=== PATIENT | male | born 1955 | race Caucasian/White ===

== ENCOUNTER → 2016-10-31 | Outpatient (CLI) | payer OTHER ==
[~2016-10-31] MED LIST: ACYC200CA PO; AMLO5TAB2 PO; ASPI81TA21 PO; HYDR25TA PO; LISI-538 PO; TRAM50TA2 PO
--- NOTE | 2016-11-04 11:33 | REP ---
MRI THE RIGHT HIP WITHOUT CONTRAST: HISTORY: Right hip pain. Comparison radiographs are from October 16, 2016. TECHNIQUE: Coronal axial and sagittal imaging planes utilized. T1 and T2-weighted scans were obtained in the usual fashion with and without fat saturation. MRI FINDINGS: There are unfortunately multiple low T1 heterogeneously increased T2 signal intensity rounded lesions scattered throughout the visualized bony skeleton consistent with skeletal metastatic disease. The largest lesion occupies essentially all of the L5 vertebral body and this is somewhat flattened. There is a 3.8 cm lesion in the right ischium and a similar size lesion in the right posterior acetabulum. There is an anterior lesion at the proximal end of the superior pubic ramus on the right. There is an inferior pubic ramus lesion on the right. There are small mottled proximal femoral lesions, the largest of which measures 1.8 cm. This is also on the right. There are bilateral lesions in the posterior iliac bones adjacent to the SI joints. The lesion on the left at this location measures 5.3 cm in greatest diameter. It is incompletely seen. There is no evidence of joint effusion. No other significant finding. IMPRESSION: Findings compatible with skeletal metastatic disease with two lesions in the periacetabular region on the right as well as bilateral iliac bone lesions adjacent the SI joints. There are right inferior pubic and superior pubic ramus lesions and there are several small lesions in the right proximal femur and to a lesser extent left proximal femur. No pelvic adenopathy seen. The visualized portions of the prostate are unremarkable. Consider radionuclide bone scan. There is partial collapse of the L5 vertebral body which is also involved. Consider MRI lumbar spine. Signed by Michael Rosales MD 11/04/2016 05:01 P
== END ==
LOC: M RAD 09:32
PROVIDERS: ATTEND Orthopaedic Surgery
DX: R93.7 Abnormal findings on diagnostic imaging of other parts of musculoskeletal system (principal)

== ENCOUNTER → 2016-11-05 | Outpatient (CLI) | payer OTHER ==
--- NOTE | 2016-11-05 14:16 | REP ---
Whole body radionuclide bone scan: History: Right hip pain. Comparison MRI study is from October 31, 2016. MRI exam showed evidence suggestive of metastatic disease. Technique: 21.5 mCi technetium 99m MDP is injected and standard whole body bone scan imaging was acquired. Scintigraphic findings: There are foci of increased uptake in several ribs including the left anterior 5th, 6th, and 7th ribs, the right 10th lateral rib, the left 11th rib end. There are small suspicious foci in the left anterior 9th and 10th ribs. There is some asymmetric increased uptake in the tip of the scapula on the right. Otherwise, there is normal distribution of skeletal tracer with uptake in bilateral kidneys and in the urinary bladder. The known hip, iliac crest and L5 lumbar spine lesions do not show observable increased uptake. Impression: Suspicious foci of increased uptake in bilateral ribs consistent with metastatic disease. Curiously, the known pelvic lesions and the L5 lesion do not show observable increased uptake. Signed by Michael Rosales MD 11/05/2016 05:15 P
== END ==
LOC: M RAD 10:43
PROVIDERS: ATTEND Orthopaedic Surgery
DX: M25.551 Pain in right hip (principal)

== ENCOUNTER → 2016-11-20 | Outpatient (REF) | payer OTHER ==
[2016-11-20 14:22] LABS: IMMUNOGLOBULIN G 2530 MG/DL (681-1648); TOTAL PROTEIN 8.3 GM/DL (6.4-8.2)
[2016-11-20 15:48] LABS: IMMUNOGLOBULIN A 18.9 MG/DL (70-400)
[2016-11-20 15:49] LABS: IMMUNOGLOBULIN M 6.02 MG/DL (40-230)
[2016-11-22 00:07] LABS: BETA 2 MICROGLOBULIN 4.1 mg/L (0.6-2.4); FREE KAPPA LIGHT CHAINS SERUM 11.7 mg/L (3.3-19.4); FREE LAMBDA LIGHT CHAINS SERUM 4303.2 mg/L (5.7-26.3)
[2016-11-23 12:54] LABS: ALBUMIN 3.82 GM/DL (3.29-5.55); GAMMA GLOBULIN % 27.3 % (11.1-18.8)
== END ==
LOC: M LAB REF 13:27
PROVIDERS: ATTEND Internal Medicine Medical Oncology
DX: D47.2 Monoclonal gammopathy (principal); C79.51 Secondary malignant neoplasm of bone

== ENCOUNTER → 2016-11-23 | Outpatient (REF) | payer OTHER | LOC: M LAB REF 15:33 | PROVIDERS: ATTEND Internal Medicine Medical Oncology | DX: D47.2 Monoclonal gammopathy (principal); C90.00 Multiple myeloma not having achieved remission; C79.51 Secondary malignant neoplasm of bone ==

== ENCOUNTER → 2016-11-25 | Outpatient (CLI) | payer OTHER ==
--- NOTE | 2016-11-25 15:46 | REP ---
Whole body PET CT scan for evaluation of multiple myeloma: Whole body PET CT scanning is performed from skull base to the upper thighs. Neck and supraclavicular areas: There is a small hypermetabolic focus in the left lateral mass of the C1 vertebra with the standard uptake value measuring 6.5. There is a hypermetabolic uptake in normal size cervical nodes at the base of the neck lateral to the thyroid one on the right with the standard uptake value of 3.4 and the other on the left with the standard uptake value of 2.5. There are no other hypermetabolic foci in the neck or supraclavicular areas. Chest: There are no hypermetabolic foci. Abdomen, pelvis and upper thighs: The spleen measures 13 cm craniocaudad and is moderately enlarged. There is diffuse uptake throughout the splenic parenchyma with the standard uptake value maximally measuring 10.6. There is uptake in several normal-size nodes at the mid and inferior abdominal aorta with a maximal standard uptake value measuring 8.6. There is uptake in a left normal size with femoral node with a standard uptake value of 5.8. There is uptake in a normal-sized left inguinal node, the standard uptake value of 5.6. Impression: There is a small focus of skeletal uptake in the left lateral mass of the C1 vertebra. There is uptake in cervical nodes in the neck bilaterally lateral to the thyroid. There is uptake in normal size nodes in the abdomen, pelvis and upper thigh as described. The study is performed with 10 mCi of F 18 FDG. Signed by Rodger Langford MD 11/25/2016 03:36 P
== END ==
LOC: M PLARAD 09:31
PROVIDERS: ATTEND Internal Medicine Medical Oncology
DX: C90.00 Multiple myeloma not having achieved remission (principal); C79.51 Secondary malignant neoplasm of bone
CPT/HCPCS: 78815; A9552

== ENCOUNTER 2016-11-28 11:26 | Inpatient (IN) | payer OTHER ==
[~2016-11-28] VITALS: Ht 167.6 cm; Wt 90.1 kg
[2016-11-28] MEDS ORDERED: TRAM50TA2 PO (11:41)
[2016-11-28] MEDS ORDERED: LISI-538 PO (11:41)
[2016-11-28] MEDS ORDERED: ASPI81TA21 PO (11:41)
[2016-11-28] MEDS ORDERED: ONDANSETRON 4 MG ORAL DISINTEGRATING TAB (S0181) PO ONE (12:00)
[2016-11-28] MEDS ORDERED: NS 1,000 ML IV ONE ×2 (12:15→14:45)
[2016-11-28] MEDS ORDERED: KETOROLAC 30 MG/ML VIAL (J1885) IV ONE (12:15)
--- NOTE | 2016-11-28 12:30 | REP ---
REASON: Abdominal pain. PRIORS: None. FINDINGS: KUB shows the intestinal gas pattern to be nonspecific. The organ silhouettes insofar as delineated are unremarkable. There is no evidence of free intraperitoneal air. The bones are demineralized. There are multiple lumbar vertebral body compression fractures. Conditions such as multiple myeloma can cause the aforementioned osseous findings. This needs to be correlated clinically. Review of history from prior imaging exams reveals that the patient, in fact, does have a history of multiple myeloma. IMPRESSION: Nonspecific. Signed by Soy Trotter DO 11/28/2016 04:41 P
[2016-11-28 12:45] LABS: BASO % 0.2 % (0.0-1.0); EOS # 0.1 K/mm3 (0.0-0.50); LARGE UNSTAINED CELL # 0.1 K/mm3 (0.0-0.4); LARGE UNSTAINED CELL % 1.5 % (0.0-4.0); LYMPH # 0.9 K/mm3 (1.5-4.5); LYMPH % 10.6 % (24.0-44.0); MEAN CORPUSCULAR HEMOGLOBIN 31.9 pg (27.0-33.0); MEAN CORPUSCULAR VOLUME 91.3 fl (80.0-96.0); MONO # 0.5 K/mm3 (0.0-0.8); MONO % 7.1 % (0.0-5.0); NEUTROPHILS % 79.6 % (36.0-66.0); PLATELET COUNT, AUTOMATED 250 k/mm3 (150-450); RED CELL DISTRIBUTION WIDTH 14.1 % (11.5-14.5); WHITE BLOOD COUNT 7.5 K/mm3 (4.0-10.0)
[2016-11-28 13:05] LABS: ALBUMIN 3.4 GM/DL (3.2-5.2); ALBUMIN/GLOBULIN RATIO 0.61 (1.00-1.93); BILIRUBIN,DIRECT 0.1 MG/DL (0.0-0.2); BILIRUBIN,TOTAL 0.6 MG/DL (0.2-1.0); CREATININE FOR GFR 3.45 MG/DL (0.70-1.30); GLOMERULAR FILTRATION RATE 19.5 (>56); POTASSIUM SERUM 4.3 MEQ/L (3.5-5.1)
[2016-11-28 13:23] LABS: CALCIUM LEVEL 14.6 MG/DL (8.5-10.1)
[2016-11-28] MEDS ORDERED: amLODIPine 5 MG TAB PO ONE ×2 (15:15→19:15)
[2016-11-28] MEDS ORDERED: ACETAMINOPHEN TAB 650MG DOSE (2X325MG) PO PRN (15:15)
--- NOTE | 2016-11-28 15:44 | HPEPDOC ---
Medical History and Physical Date of Admission Nov 28, 2016 at 15:07 History and Physical PRIMARY CARE PROVIDER: Dr. Rj Vazquez ATTENDING: Shree Sawyer MD CHIEF COMPLAINT: Nausea/vomiting HISTORY OF PRESENT ILLNESS: This is a 60-year-old male past medical history of hypertension, nephrolithiasis , has recently had an extensive workup for possible multiple myeloma with Dr. Campbell and presents complaining of nausea/nonbilious nonbloody vomiting, as well as constipation. Patient is had multiple imaging over the past month including a MRI of the lumbar spine noting a partial collapse of L5, bone scan suspicious for focal uptake in bilateral ribs questionable consistent with metastatic disease, as well as a recent PET scan with small skeletal uptake of C1 vertebrae. The patient has had blood work and that his very suspicious for multiple myeloma as well. The patient has not followed up with a manager generation yet. On presentation, the patient was noted to have acute kidney injury with significant hypercalcemia. He does note increased urine frequency. No dysuria. Does have a dry mouth. No confusion or changes in mentation. No focal weakness or deficits. PAST MEDICAL HISTORY: As per HPI PAST SURGICAL HISTORY: 2 hernia repairs, vasectomy SOCIAL HISTORY: Denies tobacco abuse. Occasional alcohol use. No illicit drug use. 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 FAMILY HISTORY: Noncontributory ALLERGIES: Please see below. REVIEW OF SYSTEMS: HEENT: Denies sore throat/headache CARDIOVASCULAR: Denies chest pain/palpitations RESPIRATORY: Denies shortness of breath/cough GASTROINTESTINAL: + nausea/vomiting, constipation. GENITOURINARY: Denies dysuria/urinary urgency. MUSCULOSKELETAL: Denies myalgias/arthralgias NEUROLOGICAL: Denies any focal weakness HOME MEDICATIONS: Please see below. PHYSICAL EXAMINATION: Vitals: (see below) General: No acute distress, laying comfortably in bed. HEENT: Dry mucous membranes. Neck: No JVD or lymphadenopathy Cardiac: RRR, No murmurs Pulm: Clear to auscultation b/l. No wheezing, rhonchi Abd: Minimal discomfort in the lower quadrants. ND + BS Ext: No edema or cyanosis Alert and oriented 3. Strength 5 out of 5 bilateral upper and lower extremity. LABORATORY DATA: See below. IMAGING: CT abdomen/pelvis, as well as renal ultrasound pending. MICROBIOLOGY: Please see below. ASSESSMENT/PLAN: 1. Hypercalcemia- likely send her secondary to multiple myeloma versus underlying malignancy. The patient does not have any neurologic changes at this time. Status post to use liters bolus normal saline followed by maintenance fluids. Repeat labs this afternoon.? Need for bisphosphonates versus calcitonin. Does appear dry on presentation, and we'll hold off on Lasix. Nephrology consulted. 2. Acute kidney injury- likely secondary to hypercalcemia, dehydration, and KEVIN inhibitor. Renal ultrasound. Urine studies. Hold KEVIN inhibitor at this point. Nephrology on consult. Continue IV fluids. 3. ? Malignancy being worked up by Dr. Campbell. Will need outpatient follow-up. 4. History of hypertension- uncontrolled. Started on amlodipine. 5. ? Abdominal discomfort in the lower quadrants. Questionable related to constipation. 6. Constipation- start on bowel regimen. 7. Prior history of nephrolithiasis- ? Related to #1. DVT prophylaxis- heparin subcutaneous Prognosis guarded. Patient was followed by Dr. Lisa Francisco starting 11/29/16 at 7 AM. Vital Signs Vital Signs Date Time Temp Pulse Resp B/P (MAP) Pulse Ox O2 Delivery O2 Flow Rate FiO2 11/28/16 11:59 11/28/16 11:27 96.9 77 18 99 Room Air Laboratory Data Labs 24H Laboratory Tests 2 11/28/16 12:33: White Blood Count 7.5, Red Blood Count 4.16L, Hemoglobin 13.3L, Hematocrit 38.0L , Mean Corpuscular Volume 91.3, Mean Corpuscular Hemoglobin 31.9, Mean Corpuscular Hemoglobin Concent 35.0, Red Cell Distribution Width 14.1, Platelet Count 250, Neutrophils (%) (Auto) 79.6H, Lymphocytes (%) (Auto) 10.6L, Monocytes (%) (Auto) 7.1H, Eosinophils (%) (Auto) 1.0, Basophils (%) (Auto) 0.2 , Neutrophils # (Auto) 6.0, Lymphocytes # (Auto) 0.9L, Monocytes # (Auto) 0.5, Eosinophils # (Auto) 0.1, Basophils # (Auto) 0.0, Large Unclassified Cells % 1.5 , Large Unclassified Cells # 0.1, Anion Gap 10, Glomerular Filtration Rate 19.5L , Calcium Level 14.6*H, Aspartate Amino Transf (AST/SGOT) 28, Alanine Aminotransferase (ALT/SGPT) 27, Alkaline Phosphatase 174H, Total Bilirubin 0.6, Direct Bilirubin 0.1, Total Protein 9.0H, Albumin 3.4, Albumin/Globulin Ratio 0.61L, Lipase 118 CBC/BMP Laboratory Tests 11/28/16 12:33 Red Blood Count 4.16 L, Mean Corpuscular Volume 91.3, Mean Corpuscular Hemoglobin 31.9, Mean Corpuscular Hemoglobin Concent 35.0, Red Cell Distribution Width 14.1, Neutrophils (%) (Auto) 79.6 H, Lymphocytes (%) (Auto) 10.6 L, Monocytes (%) (Auto) 7.1 H, Eosinophils (%) (Auto) 1.0, Basophils (%) ( Auto) 0.2, Neutrophils # (Auto) 6.0, Lymphocytes # (Auto) 0.9 L, Monocytes # ( Auto) 0.5, Eosinophils # (Auto) 0.1, Basophils # (Auto) 0.0 Home Medications Scheduled Aspirin (Aspir-Low) 81 Mg Tab, 81 MG PO DAILY Lisinopril (Lisinopril) 20 Mg Tab, 20 MG PO DAILY Scheduled PRN Tramadol HCl (Tramadol HCl) 50 Mg Tab, 50 MG PO Q6H PRN for PAIN Allergies Coded Allergies: No Known Drug Allergy (Verified Allergy, Unknown, 11/28/16) SHREE SAWYER MD Nov 28, 2016 15:44
[2016-11-28] MEDS ORDERED: traMADol 50 MG TAB PO PRN (15:45)
[2016-11-28] MEDS ORDERED: GASTROGRAFIN SOLUTION 30ML (Q9963) As Ordered ONE (15:49)
[2016-11-28] MEDS ORDERED: GASTROGRAFIN SOLUTION 30ML (Q9963) PO ONE (15:50)
[2016-11-28 16:00] VITALS: BP 174/80
[2016-11-28] MEDS ORDERED: NS 1,000 ML IV SCH (16:00)
[2016-11-28] MEDS ORDERED: GASTROGRAFIN SOLUTION 30ML PO ONE (16:20)
[2016-11-28] MEDS: PANTOPRAZOLE 40MG INJ (PROTONIX) (C9113) IV SCH (16:43)
[2016-11-28 18:00] VITALS: BP 180/86
--- NOTE | 2016-11-28 18:30 | REPUSA ---
CLINICAL HISTORY: DEHYDRATION, HYPERALCEMIA TECHNIQUE: Multiple axial, sagittal and coronal CT images were obtained through the abdomen and pelvi s without administration of oral or IV contrast material. COMMENTS: The liver is of uniform attenuation without mass or defect. There is no intra or extrahepatic biliary ductal dilatation. The spleen is mildly enlarged, 14 cm. The gallbladder is within normal limits. Th e pancreas is of normal contour and attenuation characteristics. There is no evidence of adrenal mass . The kidneys are normal in size, shape and configuration. No renal or ureteral calculi are identified. There is no hydroureter or hydronephrosis. Small fat-containing umbilical hernia is seen. There is no evidence for appendicitis. There is no bowel wall thickening. No evidence for small or la rge bowel obstruction. There is no evidence of abdominal ascites or lymphadenopathy. There is no evidence of intrinsic or extrinsic bladder mass. There is no pelvic ascites or lymphadeno hardik. Prostate gland is enlarged containing calcifications. Images of the lung bases show no evidence of pleural or parenchymal mass. There are no pleural effusi ons. There are lytic lesions noted throughout the visualized thoracolumbar spine as well as pelvic bones. L5 vertebral body appears to be completely engolfed by this lytic process. Multiple vertebral sharmin s are compressed. Multilevel degenerative changes are seen involving the thoracolumbar spine. Scattered calcifications are seen involving the aorta and major branches compatible with atherosclero sis. IMPRESSION: Diffuse lytic bony disease. L5 vertebral body appears to be completely engolfed by this lytic process . Metastases are suspected. Unclear primary malignancy. Additional findings as above. Further workup may include evaluation with PET/CT as well as MRI of the thoracolumbar spine
[2016-11-28 18:35] LABS: ALBUMIN 3.2 GM/DL (3.2-5.2); ALBUMIN/GLOBULIN RATIO 0.62 (1.00-1.93); BILIRUBIN,TOTAL 0.6 MG/DL (0.2-1.0); CREATININE FOR GFR 3.45 MG/DL (0.70-1.30); GLOMERULAR FILTRATION RATE 19.5 (>56); MAGNESIUM LEVEL 2.7 MG/DL (1.8-2.4); POTASSIUM SERUM 3.7 MEQ/L (3.5-5.1); TOTAL PROTEIN 8.4 GM/DL (6.4-8.2)
[2016-11-28 18:40] LABS: CALCIUM LEVEL 14.2 MG/DL (8.5-10.1)
[2016-11-28 20:00] VITALS: BP 167/78
[2016-11-28] MEDS: DOCUSATE SODIUM 100 MG CAP PO SCH (20:26)
[2016-11-28] MEDS ORDERED: ZOLEDRONIC ACID 4 MG in D5W 100 ML IV ONE (21:00)
--- NOTE | 2016-11-28 21:37 | ECGEPIP ---
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
[2016-11-28] MEDS: HEPARIN SOD (PORCINE) 5000 UNITS/ML VIAL SC SCH (21:48)
[2016-11-28] MEDS: KCL 20MEQ in NS 1000ML 1,000 ML IV SCH (21:49)
[2016-11-28] MEDS: CALCITONIN SALMON (MIACALCIN) 400INTERNATIONAL UNITS/2ML INJ (J0630) SQ SCH (21:49)
[2016-11-28 22:00] VITALS: BP 163/86
[2016-11-29] VITALS (8 sets, daily range): BP systolic 151–176; BP diastolic 70–87
--- NOTE | 2016-11-29 02:54 | ECGEPIP ---
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
[2016-11-29 05:34] LABS: MEAN CORPUSCULAR HEMOGLOBIN 31.7 pg (27.0-33.0); MEAN CORPUSCULAR HGB CONC 34.5 g/dl (32.0-36.5); MEAN CORPUSCULAR VOLUME 91.9 fl (80.0-96.0); WHITE BLOOD COUNT 6.3 K/mm3 (4.0-10.0)
[2016-11-29 05:49] LABS: CALCIUM LEVEL 13.2 MG/DL (8.5-10.1); CREATININE FOR GFR 3.63 MG/DL (0.70-1.30); GLOMERULAR FILTRATION RATE 18.4 (>56); MAGNESIUM LEVEL 2.4 MG/DL (1.8-2.4); POTASSIUM SERUM 3.9 MEQ/L (3.5-5.1)
[2016-11-29] MEDS: HEPARIN SOD (PORCINE) 5000 UNITS/ML VIAL SC SCH ×3 (06:40→22:12)
--- NOTE | 2016-11-29 07:24 | REP ---
REASON: Renal failure. PRIORS: None. The right kidney measures 13.5 x 7.2 x 6.4 cm and the left measures 12.4 x 6.8 x 5.6 cm. The renal cortex is echogenic bilaterally and there is less than optimal cortical medullary differentiation. There are no cystic or solid masses. There is no hydronephrosis. There is mild left caliceal dilatation. IMPRESSION: Echogenic kidneys and other findings as described above consistent with the patient's history or renal disease. Signed by Soy Trotter DO 11/29/2016 09:20 A
[2016-11-29] MEDS: ASPIRIN 81 MG ENTERIC TAB PO SCH (08:33)
[2016-11-29] MEDS: DOCUSATE SODIUM 100 MG CAP PO SCH ×2 (08:33→22:11)
[2016-11-29] MEDS: CALCITONIN SALMON (MIACALCIN) 400INTERNATIONAL UNITS/2ML INJ (J0630) SQ SCH ×2 (08:39→21:00)
[2016-11-29] MEDS: KCL 20MEQ in NS 1000ML 1,000 ML IV SCH ×2 (08:41→21:45)
[2016-11-29] MEDS ORDERED: amLODIPine 5 MG TAB PO SCH (09:00)
--- NOTE | 2016-11-29 11:55 | IPNPDOC ---
Subjective Date Seen The patient was seen on 11/29/16. Subjective Chief Complaint/HPI The patient is a 60-year-old male admitted with a reason for visit of Dehydration,Hyperalcemia. Events since last encounter feeling a little better no vomiting but still feels nauseous. no chest pain , or cough , no sob , still has some abdominal pain but better, no diarrhea. Objective Physical Examination General Exam: Positive: Alert, Cooperative, No Acute Distress Eye Exam: Positive: PERRLA, Conjunctiva & lids normal, EOMI, Negative: Sclera icteric ENT Exam: Positive: Atraumatic, Mucous membr. moist/pink, Pharynx Normal Neck Exam: Positive: Supple, Negative: JVD, thyromegaly Chest Exam: Positive: Clear to auscultation, Normal air movement Heart Exam: Positive: Rate Normal, Regular Rhythm, Normal S1, Normal S2, Negative: Murmurs, Rubs Telemetry: Positive: Bradycardia Abdomen Exam: Positive: Normal bowel sounds, Soft, Negative: Tenderness, Hepatospenomegaly Extremity Exam: Positive: Normal pulses, Negative: Clubbing, Cyanosis, Edema Skin Exam: Positive: Nl turgor and temperature, Negative: Rash, Breakdown Assessment /Plan Problems (1) Hypercalcemia Status: Acute Problem Text: due to MM with dehydration will continue with IVF , calcitonin , got Zometa on 11/28 If becomes fluid overloaded will need lasix. No Nsaids, ACEi and ARBs (2) Renal failure Status: Acute Problem Text: Acute renal failure due to hypercalcemia , dehydration and MM will continue with IVF lisinopril stopped. No Nsaids, ACEi , ARBs Or fleet enema. (3) Multiple myeloma Status: Chronic Problem Text: diagnosed in October symptoms going on for about 3 months Has IGG lambda MM follow with Dr Campbell. continue tramadol for Pain No Nsaids. (4) Hypertension Status: Chronic Problem Text: will start amlodipine. (5) Dehydration Status: Acute Problem Text: due to hypercalcemia. Plan/VTE VTE Prophylaxis Ordered?: Yes VS, I&O, 24H, Fishbone Vital Signs/I&O Vital Signs Date Time Temp Pulse Resp B/P (MAP) Pulse Ox O2 Delivery O2 Flow Rate FiO2 11/29/16 08:39 60 171/85 11/29/16 08:00 98.3 18 97 Room Air I&O- Last 24 Hours up to 6 AM 11/29/16 06:00 Intake Total 1790 ml Output Total 1220 ml Balance 570 ml Laboratory Data 24H LABS Laboratory Tests 2 11/28/16 12:33: White Blood Count 7.5, Red Blood Count 4.16L, Hemoglobin 13.3L, Hematocrit 38.0L , Mean Corpuscular Volume 91.3, Mean Corpuscular Hemoglobin 31.9, Mean Corpuscular Hemoglobin Concent 35.0, Red Cell Distribution Width 14.1, Platelet Count 250, Neutrophils (%) (Auto) 79.6H, Lymphocytes (%) (Auto) 10.6L, Monocytes (%) (Auto) 7.1H, Eosinophils (%) (Auto) 1.0, Basophils (%) (Auto) 0.2 , Neutrophils # (Auto) 6.0, Lymphocytes # (Auto) 0.9L, Monocytes # (Auto) 0.5, Eosinophils # (Auto) 0.1, Basophils # (Auto) 0.0, Large Unclassified Cells % 1.5 , Large Unclassified Cells # 0.1, Anion Gap 10, Glomerular Filtration Rate 19.5L , Calcium Level 14.6*H, Aspartate Amino Transf (AST/SGOT) 28, Alanine Aminotransferase (ALT/SGPT) 27, Alkaline Phosphatase 174H, Total Bilirubin 0.6, Direct Bilirubin 0.1, Total Protein 9.0H, Albumin 3.4, Albumin/Globulin Ratio 0.61L, Lipase 118 11/28/16 17:49: Anion Gap 8, Glomerular Filtration Rate 19.5L, Calcium Level 14.2*H, Aspartate Amino Transf (AST/SGOT) 24, Alanine Aminotransferase (ALT/SGPT) 24, Alkaline Phosphatase 158H, Total Bilirubin 0.6, Total Protein 8.4H, Albumin 3.2, Albumin/ Globulin Ratio 0.62L, Blood Urea Nitrogen 51H, Creatinine 3.45H, Sodium Level 137, Potassium Level 3.7, Chloride Level 99, Carbon Dioxide Level 30, Magnesium Level 2.7H 11/29/16 05:03: Anion Gap 11, Glomerular Filtration Rate 18.4L, Calcium Level 13.2H, Blood Urea Nitrogen 58H, Creatinine 3.63H, Sodium Level 141, Potassium Level 3.9, Chloride Level 105, Carbon Dioxide Level 25, Magnesium Level 2.4 CBC/BMP Laboratory Tests 11/28/16 12:33 Red Blood Count 4.16 L, Mean Corpuscular Volume 91.3, Mean Corpuscular Hemoglobin 31.9, Mean Corpuscular Hemoglobin Concent 35.0, Red Cell Distribution Width 14.1, Neutrophils (%) (Auto) 79.6 H, Lymphocytes (%) (Auto) 10.6 L, Monocytes (%) (Auto) 7.1 H, Eosinophils (%) (Auto) 1.0, Basophils (%) ( Auto) 0.2, Neutrophils # (Auto) 6.0, Lymphocytes # (Auto) 0.9 L, Monocytes # ( Auto) 0.5, Eosinophils # (Auto) 0.1, Basophils # (Auto) 0.0 11/28/16 17:49 Calcium Level 14.2 *H, Aspartate Amino Transf (AST/SGOT) 24, Alanine Aminotransferase (ALT/SGPT) 24, Alkaline Phosphatase 158 H, Total Bilirubin 0.6 , Total Protein 8.4 H, Albumin 3.2 11/29/16 05:03 Red Blood Count 3.29 L, Mean Corpuscular Volume 91.9, Mean Corpuscular Hemoglobin 31.7, Mean Corpuscular Hemoglobin Concent 34.5, Red Cell Distribution Width 14.0, Calcium Level 13.2 H GARETT DODSON MD Nov 29, 2016 11:55
[2016-11-29] MEDS: ONDANSETRON 4MG/2ML VIAL (J2405) IV PRN (12:32)
--- NOTE | 2016-11-29 14:34 | CR ---
DATE OF CONSULTATION: 11/28/2016 REQUESTING PHYSICIAN: Pavel Horne MD REASON FOR CONSULTATION: Acute renal failure and hypercalcemia. HISTORY OF PRESENT ILLNESS: Mr. Troncoso is a 60-year-old gentleman who was recently diagnosed with lytic bone lesions. The patient reports that he had hip pain due to which he was referred to orthopedics and an MRI showed lytic lesions due to which he was referred to oncology. He did undergo a bone marrow biopsy in addition to blood and urine tests. He has been diagnosed with multiple myeloma. He is scheduled to see Dr. Campbell for discussion about treatment; however, so far no therapy has been started. The patient presented to the emergency room today with nausea and vomiting for the last few days. He was found to have a calcium level above 14 and a creatinine level of 3.05. The patient is being hydrated with IV normal saline. A nephrology consultation was requested for his acute renal failure and severe hypercalcemia. PAST MEDICAL AND SURGICAL HISTORY: Significant for 1. Hypertension. 2. History of nephrolithiasis. 3. Recent history of multiple myeloma. PAST SURGICAL HISTORY: Significant for 1. Hernia repair. 2. Vasectomy. 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 He does not smoke or drink. He denies any drug use. FAMILY HISTORY: Negative for kidney disease or multiple myeloma. REVIEW OF SYSTEMS: The patient denies any fever or chills. He has not been feeling well for the last few days. Ears, nose and throat are unremarkable. Cardiovascular system is significant for hypertension. He denies any chest pain, palpitations or leg edema. Respiratory system is negative for cough, hemoptysis or pleuritic type of chest pain. GI system is significant for recurrent nausea and vomiting. He had poor oral intake for the last several days. system is significant for decreased urine output and a prior history of kidney stones. Musculoskeletal system is significant for back pain and hip pain. He was diagnosed with multiple lytic lesions on multiple imaging studies. Skin is negative for rash or ulcers. Hematological system is significant for recent diagnosis of multiple myeloma. Neurological system is negative for seizures or stroke. Other systems are unremarkable. PHYSICAL EXAMINATION: Middle-aged gentleman lying in the bed without any acute distress. Temperature 98 degrees Fahrenheit, heart rate 60 per minute and respiratory rate 20 per minute. Blood pressure 168/78 mmHg and oxygen saturation 97% on room air. Head is atraumatic. Ears, nose and throat are unremarkable. Neck is supple and without JVD or thyroid enlargement. Oral mucosa is moist and healthy. Pupils are equal and reactive to light and sclera is anicteric. Heart sounds are regular and lungs clear to auscultation bilaterally. Abdomen was soft and nontender and without palpable organomegaly. Bowel sounds are normal. Extremities have no cyanosis or clubbing. Skin has no rash or ulcers. Neurologically he is awake, alert and oriented times three. There is no focal neurological deficit. LABORATORY DATA: I have reviewed his current and previous labs. His hemoglobin is 13.3 and hematocrit 38.0. Platelets 250. Today on admission, calcium level was 14.6, BUN 52 and creatinine 3.45. Sodium 136 and potassium 4.3. CO2 is 29. A repeat calcium is 14.2 and magnesium 2.7. Sodium 137 and potassium 3.7. His other workup has included a serum and urine protein electrophoresis done earlier this month. He had an M spike both in serum and urine protein electrophoresis. His lambda free light chains were 4303. Serum protein electrophoresis showed elevated alpha-2 globulins. Imaging studies included a CAT scan of abdomen and pelvis done today, which showed multiple lytic lesions at various levels. L5 vertebra is particularly involved and completely engulfed by this lytic process. No evidence of hydronephrosis. PROBLEM LIST: 1. Severe hypercalcemia. Most likely this is a result of multiple myeloma. Patient has diffuse and generalized lytic lesions in the bones all over. We will treat him with IV normal saline which he is already receiving and also add calcitonin 200 international units every 12 hours. We will also give him Zometa 4 mg intravenously times one dose. His calcium level will be checked again tomorrow morning. 2. Acute renal failure. Most likely this is a result of dehydration caused by an ongoing nausea, vomiting and severe hypercalcemia. We will continue with IV normal saline and I strongly recommend to avoid any diuretic use at this point. Renal profile will be checked again tomorrow morning. There is no evidence of uremia and his nausea and vomiting is related to hypercalcemia. At this point, there is no indication for dialysis. 3. Hypokalemia. His potassium level is only 3.7 and he will be at risk for hypokalemia with ongoing IV normal saline. We will add 20 mEq of potassium chloride in each liter of normal saline and recheck his electrolytes tomorrow. 4. Multiple myeloma. The patient did have bone marrow biopsy, PET scan and serum urine protein electrophoresis. Diagnosis of multiple myeloma seems confirmed. He was already seen by Dr. Campbell. I would recommend to contact Dr. Campbell for starting his chemotherapy as soon as possible. Thank you for involving me in the care of Mr. Troncoso. I will follow him along with you.
[2016-11-29] MEDS: PANTOPRAZOLE 40MG INJ (PROTONIX) (C9113) IV SCH (18:30)
--- NOTE | 2016-11-29 20:24 | IPN ---
DATE: 11/29/2016 Mr Troncoso is seen this morning on his bedside. He is sitting in the chair and feels nauseated. He denies any dyspnea or chest pain. PHYSICAL EXAMINATION: Temperature 98 degrees Fahrenheit, heart rate 78 per minute and respiratory rate 18 per minute. Blood pressure 166/80 mmHg and oxygen saturation 98% on room air. Intake and output records from yesterday showed total intake 1670 and output 720. Today, so far he has intake 720 and output 800. His head is atraumatic. Neck is supple and without JVD or thyroid enlargement. Ears, nose and throat are unremarkable. Heart exam reveals regular S1-S2. Lungs are clear to auscultation bilaterally. Abdomen is soft and nontender and without a palpable organomegaly. Bowel sounds are normal. Extremities have no cyanosis or clubbing. Skin has no rash or ulcers. Neurologically, he is awake, alert and oriented times three. Today's labs show white blood count (WBC) 6.3, hemoglobin 10.4 and hematocrit 30.2. Platelets 214. Sodium 141 and potassium 3.9. BUN 58 and creatinine 3.63. Calcium level is down to 13.2 and magnesium 2.4. PROBLEMS: 1. Hypercalcemia most likely a result of multiple myeloma. He has multiple lytic bone lesions. He has been started on calcitonin and also was given a dose of Zometa last evening. His calcium level has improved from 14.6 on admission down to 13.2 today. He will remain on normal saline 75 mL per hour. 2. 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 We will continue with IV fluid hydration. No improvement in kidney function with IV fluid so far. It is somewhat concerning. I have discussed with the patient and his at length about his prognosis and potential need for dialysis if his kidney function does not improve in next 24 to 48 hours. 3. Anemia. His anemia is worse and this is most likely related to hemodilution. He also has multiple myeloma and acute renal failure and both would be contributing to anemia. At present, there is no indication for transfusion. We will continue to monitor his complete blood count (CBC) on daily basis. 4. Multiple myeloma. The patient has already been seen by Dr. Campbell and we will try to get her to see him tomorrow for possible starting of chemotherapy. I feel that his acute renal failure will only recover if his myeloma gets treated quickly if his acute renal failure is related to acute myeloma kidney.
[2016-11-29] MEDS: amLODIPine 5 MG TAB PO SCH (22:11)
[2016-11-30] MEDS: ONDANSETRON 4MG/2ML VIAL (J2405) IV PRN ×2 (00:09→12:41)
[2016-11-30] MEDS ORDERED: PROMETHAZINE INJ 25 MG/ML VIAL (J2550) IV PRN (01:45)
[2016-11-30 04:41] VITALS: BP 159/84
[2016-11-30 04:58] LABS: MEAN CORPUSCULAR HEMOGLOBIN 31.7 pg (27.0-33.0); MEAN CORPUSCULAR HGB CONC 34.3 g/dl (32.0-36.5); MEAN CORPUSCULAR VOLUME 92.7 fl (80.0-96.0); RED CELL DISTRIBUTION WIDTH 14.1 % (11.5-14.5); WHITE BLOOD COUNT 6.7 K/mm3 (4.0-10.0)
[2016-11-30 05:12] LABS: CALCIUM LEVEL 10.9 MG/DL (8.5-10.1); CREATININE FOR GFR 3.83 MG/DL (0.70-1.30); GLOMERULAR FILTRATION RATE 17.3 (>56); MAGNESIUM LEVEL 2.2 MG/DL (1.8-2.4); POTASSIUM SERUM 4.1 MEQ/L (3.5-5.1)
[2016-11-30] MEDS: HEPARIN SOD (PORCINE) 5000 UNITS/ML VIAL SC SCH ×3 (06:33→21:36)
[2016-11-30 08:00] VITALS: BP 144/78
--- NOTE | 2016-11-30 08:33 | IPNPDOC ---
Subjective Date Seen The patient was seen on 11/30/16. Subjective Chief Complaint/HPI The patient is a 60-year-old male admitted with a reason for visit of Dehydration,Hyperalcemia. Events since last encounter Had one episode of vomiting last night . however was able to tolerate diet. no fever or chills, no abdominal pain , no bowel movements yet. No sob or cough , no chest pain. Objective Physical Examination General Exam: Positive: Alert, Cooperative, No Acute Distress Eye Exam: Positive: PERRLA, Conjunctiva & lids normal, EOMI, Negative: Sclera icteric ENT Exam: Positive: Atraumatic, Mucous membr. moist/pink, Pharynx Normal Neck Exam: Positive: Supple, Negative: JVD, thyromegaly Chest Exam: Positive: Clear to auscultation, Normal air movement Heart Exam: Positive: Rate Normal, Regular Rhythm, Normal S1, Normal S2, Negative: Murmurs, Rubs Telemetry: Positive: Bradycardia Abdomen Exam: Positive: Normal bowel sounds, Soft, Negative: Tenderness, Hepatospenomegaly Extremity Exam: Positive: Normal pulses, Negative: Clubbing, Cyanosis, Edema Skin Exam: Positive: Nl turgor and temperature, Negative: Rash, Breakdown Assessment /Plan Problems (1) Hypercalcemia Status: Acute Response to Treatment: Improving Problem Text: due to MM with dehydration will continue with IVF , calcitonin , got Zometa on 11/28 If becomes fluid overloaded will need lasix. No Nsaids, ACEi and ARBs (2) Renal failure Status: Acute Problem Text: Acute renal failure due to hypercalcemia , dehydration and MM will continue with IVF lisinopril stopped. No Nsaids, ACEi , ARBs Or fleet enema. Not showing any improvement yet so could be due to myeloma kidney which wont get better until MM is treated. (3) Multiple myeloma Status: Chronic Problem Text: diagnosed in October symptoms going on for about 3 months Has IGG lambda MM Dr Campbell to see the pateint and see if he needs inpatient chemotherapy. continue tramadol for Pain No Nsaids. (4) Hypertension Status: Chronic Problem Text: will continue amlodipine. (5) Dehydration Status: Acute Problem Text: due to hypercalcemia. (6) Anemia Status: Acute Problem Text: multifactorial due to hemodilution , acute kidney injury and MM Plan/VTE VTE Prophylaxis Ordered?: Yes VS, I&O, 24H, [place] Vital Signs/I&O Vital Signs Date Time Temp Pulse Resp B/P (MAP) Pulse Ox O2 Delivery O2 Flow Rate FiO2 11/30/16 08:00 98.5 61 18 144/78 (100) 97 Room Air I&O- Last 24 Hours up to 6 AM 11/30/16 06:00 Intake Total 2130 ml Output Total 1900 ml Balance 230 ml Laboratory Data 24H LABS Laboratory Tests 2 11/30/16 04:09: Anion Gap 10, Glomerular Filtration Rate 17.3L, Blood Urea Nitrogen 55H, Creatinine 3.83H, Sodium Level 141, Potassium Level 4.1, Chloride Level 107, Carbon Dioxide Level 24, Calcium Level 10.9#H, Magnesium Level 2.2 CBC/BMP Laboratory Tests 11/30/16 04:09 Red Blood Count 3.06 L, Mean Corpuscular Volume 92.7, Mean Corpuscular Hemoglobin 31.7, Mean Corpuscular Hemoglobin Concent 34.3, Red Cell Distribution Width 14.1, Calcium Level 10.9 #H GARETT DODSON MD Nov 30, 2016 08:33
[2016-11-30] MEDS: DOCUSATE SODIUM 100 MG CAP PO SCH ×2 (09:16→21:35)
[2016-11-30] MEDS: ASPIRIN 81 MG ENTERIC TAB PO SCH (09:16)
[2016-11-30] MEDS: amLODIPine 5 MG TAB PO SCH ×2 (09:18→21:35)
[2016-11-30] MEDS: CALCITONIN SALMON (MIACALCIN) 400INTERNATIONAL UNITS/2ML INJ (J0630) SQ SCH ×2 (09:20→21:35)
[2016-11-30] MEDS: KCL 20MEQ in NS 1000ML 1,000 ML IV SCH (10:39)
[2016-11-30 12:00] VITALS: BP 157/79
[2016-11-30 16:00] VITALS: BP 166/83
--- NOTE | 2016-11-30 18:27 | IPN ---
DATE: 11/30/2016 Mr. Troncoso is seen this morning on his bedside. He is feeling about the same. He reports that he vomited last evening and did not eat anything so far this morning. He continues to have some nausea. There is no dyspnea, chest pain, abdominal pain, diarrhea, rectal bleeding or black colored stools. PHYSICAL EXAMINATION: Temperature 98.5 degrees Fahrenheit, heart rate 60 per minute and respiratory rate 18 per minute. Blood pressure 144/78 mmHg and oxygen saturation 97% on room air. Head is atraumatic. Neck is supple and without JVD or thyroid enlargement. Pupils are equal and reactive to light and sclerae is anicteric. Ears, nose and throat are unremarkable. Heart sounds are regular and lungs clear to auscultation. Abdomen is soft and nontender and without a palpable organomegaly. Bowel sounds are normal. Extremities have no cyanosis or clubbing. Skin has no rash or ulcers. Neurologically he is awake, alert and oriented times three. Today's labs show WBC count 6.7, hemoglobin 9.7 and hematocrit 28.4. Sodium 141 and potassium 4.1. BUN 55 and creatinine 3.83. Calcium level is 10.9 today and magnesium 2.2. PROBLEMS: 1. Acute renal failure. 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 With IV fluid hydration his kidney function has not improved. So far he does not have any uremic symptoms and there is no urgent indication for dialysis. I have discussed with the patient and his and explained the potential need for dialysis if his kidney function does not improve over the next few days. 2. Hypercalcemia. Related to multiple myeloma and multiple lytic bone lesions. Calcium level has improved significantly since admission. He will continue with calcitonin 200 units every 12 hours. He was also given a dose of Zometa 4 mg 2 days ago. We will also continue with IV normal saline at this point and avoid any diuretic. 3. Multiple myeloma. The patient is known to have multiple myeloma and has completed his workup as an outpatient. I have discussed with Dr. Francisco and have recommended to get oncology to see him while he is here in the hospital and consider starting chemotherapy as soon as possible in view of acute myeloma kidney. 4. Hypertension. Blood pressure control has improved. We will continue to adjust medications as indicated. 5. Anemia. This is related to acute renal failure and multiple myeloma. Will give him one dose of Aranesp 100 mcg tomorrow morning.
[2016-11-30] MEDS: PANTOPRAZOLE 40MG INJ (PROTONIX) (C9113) IV SCH (19:47)
[2016-11-30 20:00] VITALS: BP 154/76
[2016-11-30 21:10] VITALS: BP 164/80
[2016-12-01] MEDS: KCL 20MEQ in NS 1000ML 1,000 ML IV SCH (00:02)
[2016-12-01] MEDS: HEPARIN SOD (PORCINE) 5000 UNITS/ML VIAL SC SCH ×3 (05:50→21:19)
[2016-12-01 06:00] VITALS: BP_SYST 159; BP_SYST 259; BP_DIAS 76
[2016-12-01 06:26] LABS: MEAN CORPUSCULAR HEMOGLOBIN 31.3 pg (27.0-33.0); MEAN CORPUSCULAR HGB CONC 33.5 g/dl (32.0-36.5); MEAN CORPUSCULAR VOLUME 93.4 fl (80.0-96.0); RED CELL DISTRIBUTION WIDTH 14.4 % (11.5-14.5); WHITE BLOOD COUNT 6.7 K/mm3 (4.0-10.0)
[2016-12-01 06:31] LABS: CALCIUM LEVEL 9.8 MG/DL (8.5-10.1); CREATININE FOR GFR 3.26 MG/DL (0.70-1.30); GLOMERULAR FILTRATION RATE 20.8 (>56); MAGNESIUM LEVEL 2.1 MG/DL (1.8-2.4); POTASSIUM SERUM 4.3 MEQ/L (3.5-5.1)
[2016-12-01] MEDS ORDERED: DARBEPOETIN 100 MCG/0.5 ML *NON-DIALYSIS* SYRINGE (J0881) SC SCH (09:00)
[2016-12-01] MEDS: DOCUSATE SODIUM 100 MG CAP PO SCH ×2 (09:38→21:19)
[2016-12-01] MEDS: ASPIRIN 81 MG ENTERIC TAB PO SCH (09:39)
[2016-12-01] MEDS: amLODIPine 5 MG TAB PO SCH ×2 (09:39→21:20)
[2016-12-01] MEDS: CALCITONIN SALMON (MIACALCIN) 400INTERNATIONAL UNITS/2ML INJ (J0630) SQ SCH (09:39)
[2016-12-01 10:00] VITALS: BP 138/78
--- NOTE | 2016-12-01 10:06 | CR ---
DATE OF CONSULTATION: 11/30/2016 REASON FOR REFERRAL: Multiple myeloma/Plasma cell dyscrasia. HISTORY OF PRESENT ILLNESS: Mr. Troncoso is a 60-year-old man who is suspected of multiple myeloma and was seen in clinic last week for a bone marrow aspiration and biopsy. He is at present currently admitted for hypercalcemia and renal failure. Symptom fam, he has been improving since he was given zoledronic acid. He is currently on IV fluid hydration. PHYSICAL EXAMINATION: He was afebrile. Blood pressure 140/78. Heart rate 61 per minute. Oxygen saturation 97% on room air. He had no oral mucosa lesions. Lungs were clear. No rales, rhonchi, no wheeze. The bone marrow biopsy site on his right side has healed with no active bleeding and no swelling and no erythema. Extremities - No calf swelling, no tenderness and no pedal edema. IMPRESSION AND PLAN: Mr. Troncoso had a bone marrow biopsy last week and this came back showing extensive involvement with plasma cells consistent with multiple myeloma/plasma cell dyscrasia. I discussed these results with Mr. Troncoso today. 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 His previous blood tests also showed increased lambda light chains and immunofixation showing IgG lambda. Unfortunately, the bone marrow aspiration turned out to be a dry tap and cytogenetics could not be done on the bone marrow biopsy specimen. I discussed that it would be important to assess bone marrow cytogenetics for prognostic purposes. I discussed with Mr. Troncoso that we need to do another bone marrow biopsy to assess his cytogenetics, which would be important for future purposes particularly if he were to be considered for a bone marrow transplant. We will arrange to do this on Wednesday, following which he would start chemotherapy pending approval from his insurance company. The chemo regimen would be bortezomib/lenalidomide and dexamethasone. He would also be on aspirin, as well as antiviral medications while on the regimen. Mr. rToncoso has agreed to the above plan. Thank you very much for informing me of his admission. cc: MD Lisa Franco MD MTDD
[2016-12-01 14:00] VITALS: BP 140/73
[2016-12-01] MEDS ORDERED: NON-FORMULARY 1 EA EA SC ONE (16:15)
[2016-12-01] MEDS ORDERED: PROCHLORPERAZINE 5 MG TAB (S0183) PO PRN (17:30)
[2016-12-01] MEDS: PANTOPRAZOLE 40MG INJ (PROTONIX) (C9113) IV SCH (17:46)
--- NOTE | 2016-12-01 18:51 | IPNPDOC ---
Date Seen The patient was seen on 12/01/16. Progress Note Hospitalist Progress Note Subjective: Patient overall feels well. However, he does have some questions about the plan for his kidneys and his myeloma. Objective: Physical Exam: Vitals: Vital Sign - Last 24 Hours 11/30/16 11/30/16 11/30/16 12/01/16 20:00 21:10 21:35 06:00 Temp 99.2 98.0 98.9 Pulse 67 68 68 67 Resp 18 20 20 B/P (MAP) 154/76 (102) 164/80 (108) 164/80 159/76 (103) Pulse Ox 95 98 96 O2 Delivery Room Air Room Air Room Air 12/01/16 12/01/16 12/01/16 09:39 10:00 14:00 Temp 99.4 99.5 Pulse 67 60 63 Resp 20 20 B/P (MAP) 159/76 138/78 (98) 140/73 (95) Pulse Ox 96 97 O2 Delivery Room Air Room Air General: Awake, alert, no acute distress HEENT: Normocephalic, atraumatic, extraocular movements intact CV: Regular rate and rhythm Lungs: Clear to auscultation bilaterally Abd: Soft, nontender, nondistended Extremities: No edema Neuro: Alert and oriented 3, normal speech Psych: And normal mood and affect Labs and Imaging: Laboratory Tests 12/01/16 06:00 Red Blood Count 2.87 L, Mean Corpuscular Volume 93.4, Mean Corpuscular Hemoglobin 31.3, Mean Corpuscular Hemoglobin Concent 33.5, Red Cell Distribution Width 14.4, Calcium Level 9.8 Assessment and Plan: 60-year-old male with hypertension, nephrolithiasis, recent diagnosis of likely multiple myeloma who presented with nausea, vomiting, and constipation.. He is admitted with hypercalcemia and acute kidney injury. 1. Hypercalcemia: Secondary to multiple myeloma and lytic bone lesions. This is now resolved with IV fluids and calcitonin. Continue calcitonin at the discretion of Dr. López. Avoid diuretics. 2. Acute kidney injury: Baseline creatinine is unknown, however, creatinine upon admission was 3.45. Dr. López is following and we greatly appreciate his input. 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 He has had very little improvement with IV hydration, however, his creatinine is slightly improved today at 3.26. IV fluids as per nephrology. Currently holding KEVIN inhibitor. 3. Concern for multiple myeloma with metastases: Dr. Campbell has seen the patient in consultation here in the hospital, and she is planning to do a repeat bone marrow biopsy tomorrow. She is also planning to initiate chemotherapy soon, once it is approved by his insurance. 4. Hypertension: Currently adequately controlled. Continue the Norvasc which was started here. Currently holding home KEVIN inhibitor. 5. Anemia: The patient's hemoglobin upon admission was 13.3, and it has now trended down to 9.0. We will defer management of this to Dr. López and Dr. Campbell. Continue to monitor, no source of bleeding at this time. DVT prophylaxis: Heparin Dispo: pending kidney function and clearance by nephrology and oncology VS, I&O, 24H, Fishbone Vital Signs/I&O Vital Signs Date Time Temp Pulse Resp B/P (MAP) Pulse Ox O2 Delivery O2 Flow Rate FiO2 12/01/16 14:00 99.5 63 20 140/73 (95) 97 Room Air I&O- Last 24 Hours up to 6 AM 12/01/16 06:00 Intake Total 2515 ml Output Total 1650 ml Balance 865 ml Laboratory Data 24H LABS Laboratory Tests 2 12/01/16 06:00: Anion Gap 6L, Glomerular Filtration Rate 20.8L, Blood Urea Nitrogen 47H, Creatinine 3.26H, Sodium Level 140, Potassium Level 4.3, Chloride Level 110H, Carbon Dioxide Level 24, Calcium Level 9.8, Magnesium Level 2.1 CBC/BMP Laboratory Tests 12/01/16 06:00 Red Blood Count 2.87 L, Mean Corpuscular Volume 93.4, Mean Corpuscular Hemoglobin 31.3, Mean Corpuscular Hemoglobin Concent 33.5, Red Cell Distribution Width 14.4, Calcium Level 9.8 HALLE KWON Dec 01, 2016 18:51
--- NOTE | 2016-12-01 21:53 | IPN ---
DATE: 12/01/2016 Mr. Troncoso is seen this morning on his bedside. He is feeling better today and reports that his nausea has improved. He denies any vomiting or diarrhea. There is no dyspnea or chest pain. His appetite has also improved. PHYSICAL EXAMINATION: Temperature 98.9 degrees Fahrenheit, heart rate 68 per minute and respiratory rate 20 per minute. Blood pressure 159/76 mmHg and oxygen saturation 96% on room air. Intake and output records from yesterday showed total intake 2800 and output 2300 mL. His weight is 86.1 kg, which is essentially unchanged. His head is atraumatic. Pupils equal and reactive to light and sclera is anicteric. Ears, nose and throat are unremarkable. Neck veins are about 7-8 cm above sternal angle. Trachea is midline and there is no thyroid enlargement. Heart: Sounds are regular and lungs sounds clear to auscultation. Abdomen: Soft and nontender and without any palpable organomegaly. Bowel sounds are normal. Extremities have no cyanosis or clubbing. Skin has no rash or ulcers. Neurologically he is awake, alert and oriented times three. Today's labs show WBC count 6.7, hemoglobin 9.0 and hematocrit 26.8. Platelets of 186. Sodium 140 and potassium 4.3. BUN 47 and creatinine 3.26. Calcium level is 9.8 and magnesium 2.1. PROBLEMS: 1. Hypercalcemia related to multiple myeloma and has improved with IV fluid, calcitonin and zometa. I will cut down his calcitonin dose to just every 24 hours and stop the IV normal saline as he seems to be very well-hydrated. 2. 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 Kidney function has started to improve with IV hydration, which is very encouraging. He does not have any uremic symptoms and we will continue to monitor his kidney function on a daily basis. 3. Multiple myeloma. The patient already has a diagnosis made for multiple myeloma. We are waiting for chemotherapy to start. Oncology is already following him. 4. Anemia. Slight worsening noted and this may be related to acute renal failure and multiple myeloma. The patient will be given one dose of Aranesp 100 mcg today. We will continue to monitor his CBC on daily basis.
[2016-12-01 22:00] VITALS: BP 155/83
[2016-12-02 06:00] VITALS: BP 173/90
[2016-12-02] MEDS: HEPARIN SOD (PORCINE) 5000 UNITS/ML VIAL SC SCH ×3 (06:07→21:33)
[2016-12-02 06:50] LABS: MEAN CORPUSCULAR HEMOGLOBIN 31.9 pg (27.0-33.0); RED CELL DISTRIBUTION WIDTH 14.4 % (11.5-14.5); WHITE BLOOD COUNT 6.7 K/mm3 (4.0-10.0)
[2016-12-02 07:27] LABS: CALCIUM LEVEL 9.5 MG/DL (8.5-10.1); CREATININE FOR GFR 3.01 MG/DL (0.70-1.30); GLOMERULAR FILTRATION RATE 22.8 (>56); MAGNESIUM LEVEL 1.9 MG/DL (1.8-2.4); POTASSIUM SERUM 4.2 MEQ/L (3.5-5.1)
[2016-12-02] MEDS ORDERED: CALCITONIN SALMON (MIACALCIN) 400INTERNATIONAL UNITS/2ML INJ (J0630) SQ SCH (09:00)
[2016-12-02] MEDS ORDERED: **hydrALAZINE HCL** 25 MG TAB PO ONE (09:15)
[2016-12-02] MEDS: ACYCLOVIR 200 MG CAPSULE PO SCH ×2 (09:19→21:35)
[2016-12-02] MEDS: DOCUSATE SODIUM 100 MG CAP PO SCH ×2 (09:20→21:35)
[2016-12-02] MEDS: amLODIPine 5 MG TAB PO SCH ×2 (09:20→21:34)
[2016-12-02] MEDS: ASPIRIN 81 MG ENTERIC TAB PO SCH (09:20)
[2016-12-02] MEDS ORDERED: LIDOCAINE 2% MDV 20 ML VIAL As Ordered ONE (12:19)
[2016-12-02] MEDS ORDERED: LIDOCAINE 2% MDV 20 ML VIAL SC ONE (12:30)
[2016-12-02] MEDS ORDERED: diphenhydrAMINE 25 MG CAP PO PRN (13:30)
--- NOTE | 2016-12-02 13:31 | IPNPDOC ---
Date Seen The patient was seen on 12/02/16. Progress Note Hospitalist Progress Note Subjective: Patient overall feels well and has no complaints Objective: Physical Exam: Vitals: Vital Sign - Last 24 Hours 12/01/16 12/01/16 12/01/16 12/02/16 14:00 21:20 22:00 06:00 Temp 99.5 98.9 98.0 Pulse 63 54 54 55 Resp 20 5 15 B/P (MAP) 140/73 (95) 155/83 155/83 (107) 173/90 (117) Pulse Ox 97 98 99 O2 Delivery Room Air Room Air Room Air 12/02/16 12/02/16 09:20 09:22 Pulse 55 B/P (MAP) 173/90 173/90 General: Awake, alert, no acute distress HEENT: Normocephalic, atraumatic, extraocular movements intact CV: Regular rate and rhythm Lungs: Clear to auscultation bilaterally Abd: Soft, nontender, nondistended Extremities: No edema Neuro: Alert and oriented 3, normal speech Psych: normal mood and affect Labs and Imaging: Laboratory Tests 12/02/16 06:34 Red Blood Count 3.24 L, Mean Corpuscular Volume 94.0, Mean Corpuscular Hemoglobin 31.9, Mean Corpuscular Hemoglobin Concent 34.0, Red Cell Distribution Width 14.4, Calcium Level 9.5 Assessment and Plan: 60-year-old male with hypertension, nephrolithiasis, recent diagnosis of likely multiple myeloma who presented with nausea, vomiting, and constipation.. He is admitted with hypercalcemia and acute kidney injury. 1. Hypercalcemia: Secondary to multiple myeloma and lytic bone lesions. This is now resolved with IV fluids and calcitonin. Continue calcitonin at the discretion of Dr. López. Avoid diuretics. 2. Acute kidney injury: Baseline creatinine is unknown, however, creatinine upon admission was 3.45. Dr. López is following and we greatly appreciate his input. 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 The patient has finally begun to have some improvement and Cr is now 3.01. IV fluids as per nephrology. Currently holding KEVIN inhibitor. 3. Concern for multiple myeloma with metastases: Dr. Campbell has seen the patient in consultation here in the hospital, and she is planning to do a repeat bone marrow biopsy today. She is also planning to initiate chemotherapy soon, once it is approved by his insurance. 4. Hypertension: Currently adequately controlled. Continue the Norvasc which was started here. Currently holding home KEVIN inhibitor. 5. Anemia: The patient's hemoglobin upon admission was 13.3, and it has now trended down to 10.3. We will defer management of this to Dr. López and Dr. Campbell. Continue to monitor, no source of bleeding at this time. DVT prophylaxis: Heparin Dispo: pending kidney function and clearance by nephrology and oncology VS, I&O, 24H, Fishbone Vital Signs/I&O Vital Signs Date Time Temp Pulse Resp B/P (MAP) Pulse Ox O2 Delivery O2 Flow Rate FiO2 12/02/16 09:22 173/90 12/02/16 09:20 55 12/02/16 06:00 98.0 15 99 Room Air I&O- Last 24 Hours up to 6 AM 12/02/16 05:59 Intake Total 1735 ml Output Total 1240 ml Balance 495 ml Laboratory Data 24H LABS Laboratory Tests 2 12/02/16 06:34: Anion Gap 8, Glomerular Filtration Rate 22.8L, Blood Urea Nitrogen 39H, Creatinine 3.01H, Sodium Level 137, Potassium Level 4.2, Chloride Level 107, Carbon Dioxide Level 22, Calcium Level 9.5, Magnesium Level 1.9 CBC/BMP Laboratory Tests 12/02/16 06:34 Red Blood Count 3.24 L, Mean Corpuscular Volume 94.0, Mean Corpuscular Hemoglobin 31.9, Mean Corpuscular Hemoglobin Concent 34.0, Red Cell Distribution Width 14.4, Calcium Level 9.5 HALLE KWON Dec 02, 2016 13:31
[2016-12-02 14:00] VITALS: BP 178/93
[2016-12-02 15:50] VITALS: BP 152/70
[2016-12-02] MEDS ORDERED: BORTEZOMIB SC ONE (16:00)
[2016-12-02] MEDS: PANTOPRAZOLE 40MG INJ (PROTONIX) (C9113) IV SCH (18:18)
[2016-12-02] MEDS: **hydrALAZINE HCL** 25 MG TAB PO SCH (21:35)
[2016-12-02 22:00] VITALS: BP 160/82
--- NOTE | 2016-12-02 23:12 | IPN ---
DATE: 12/02/2016 Mr. Troncoso is seen this morning on his bedside. He is feeling well and denies any nausea, vomiting, abdominal pain, dyspnea or chest pain. He was admitted with acute renal failure and severe hypercalcemia and has already been diagnosed with multiple myeloma. He is being started on dexamethasone and Velcade by oncology. PHYSICAL EXAMINATION: Temperature 98.0 degrees Fahrenheit, heart rate 56 per minute and respiratory rate 15 per minute. Blood pressure 173/90 mmHg and oxygen saturation 99% on room air. Head: Is atraumatic. Neck veins are mildly distended. His neck is supple and without any thyroid enlargement. Ears, nose and throat are unremarkable. Heart: Sounds are regular and lungs with few basilar rales. Abdomen: Soft and nontender and without palpable organomegaly. Bowel sounds are normal. Extremities have no cyanosis or clubbing. Skin has no rash or ulcers. Neurologically he is awake, alert and oriented times three. Today's labs show WBC count 6.7, hemoglobin 10.3, hematocrit 30.4. Platelets 209. Sodium 137 and potassium 4.2. BUN 39 and creatinine 3.01. Calcium level is 9.5 and magnesium 1.9. PROBLEMS: 1. Acute renal failure most likely related to acute myeloma kidney. Kidney function is gradually improving. He has no uremic symptoms and electrolytes are within normal range. IV fluid has already been stopped since yesterday and he is very well-hydrated. We will continue to monitor his kidney function on a daily basis. 2. Hypercalcemia. Calcium level has also corrected. The patient is being started on treatment for multiple myeloma. He received one dose of Zometa and is also receiving calcitonin every day. I am going to stop his calcitonin after dose today and will continue to monitor his calcium level on a daily basis. 3. Multiple myeloma. The patient is being started on dexamethasone and Velcade. He will be followed up by oncology. 4. Hypertension. Blood pressure control is suboptimal. He is not suitable for KEVIN inhibitor or ARB. He is already on calcium channel lorena and his heart rate is in 50s. We cannot add a beta lorena at this time. I will start him on hydralazine 25 mg twice a day and will continue with amlodipine 5 mg twice a day. 5. Anemia. This is related to acute renal failure and multiple myeloma. Anemia is stable at this point and does not need any intervention. We already gave him a dose of Aranesp 100 mcg yesterday.
[2016-12-03] MEDS: HEPARIN SOD (PORCINE) 5000 UNITS/ML VIAL SC SCH (05:12)
[2016-12-03 06:00] VITALS: BP 161/92
[2016-12-03 07:12] LABS: MEAN CORPUSCULAR VOLUME 91.6 fl (80.0-96.0); RED CELL DISTRIBUTION WIDTH 14.3 % (11.5-14.5); WHITE BLOOD COUNT 8.1 K/mm3 (4.0-10.0)
[2016-12-03 07:30] LABS: CALCIUM LEVEL 9.1 MG/DL (8.5-10.1); CREATININE FOR GFR 2.48 MG/DL (0.70-1.30); GLOMERULAR FILTRATION RATE 28.5 (>56); MAGNESIUM LEVEL 1.9 MG/DL (1.8-2.4); POTASSIUM SERUM 4.2 MEQ/L (3.5-5.1)
--- NOTE | 2016-12-03 09:13 | IPN ---
DATE: 12/02/2016 DIAGNOSIS: IgG lambda multiple myeloma with elevated M protein and free lambda light chain = 4303 ng/ml(11/20/2016) with hypercalcemia, lytic bone lesions, anemia and renal insufficiency. HISTORY OF PRESENT ILLNESS: Mr. Troncoso is still in the hospital for hypercalcemia and renal failure. His creatinine level has been improving and his calcium level has also improved following IV fluid hydration and administration of zoledronic acid, as well as calcitonin. He is feeling reasonably well today. I discussed doing another bone marrow biopsy to assess for cytogenetics. He has agreed to this. Following the bone marrow aspiration and biopsy, we plan to give bortezomib chemotherapy treatment and to give dexamethasone 20 mg orally. He has already been started on acyclovir viral prophylaxis as there is a risk for zoster infection with bortezomib. PROCEDURE: Left posterior iliac crest bone marrow biopsy. Informed consent was obtained from the patient. INDICATION: Multiple myeloma. DESCRIPTION OF PROCEDURE: Under aseptic technique and after injecting a local anesthetic, Lidocaine 2%, a bone marrow biopsy was done on the left posterior iliac crest. No complications were noted. The patient tolerated the procedure well. Plan: Bortezomib was injected subcutaneously on the patient's anterior abdominal wall after the procedure. I discussed with Mr. Troncoso that once he is discharged from the hospital, we will arrange for him to continue his chemotherapy with bortezomib/dexamethasone and lenalidomide as an outpatient at the [facility] oncology office. We are in the process of getting his lenalidomide prescription delivered to his home at this time. Mr. Troncoso has agreed to the above plan and expressed understanding of the above plan.
[2016-12-03] MEDS: DOCUSATE SODIUM 100 MG CAP PO SCH (09:14)
[2016-12-03] MEDS: ASPIRIN 81 MG ENTERIC TAB PO SCH (09:14)
[2016-12-03] MEDS: ACYCLOVIR 200 MG CAPSULE PO SCH (09:14)
[2016-12-03] MEDS: **hydrALAZINE HCL** 25 MG TAB PO SCH (09:14)
[2016-12-03 09:15] VITALS: BP 161/92
[2016-12-03] MEDS: amLODIPine 5 MG TAB PO SCH (09:15)
[2016-12-03] MEDS ORDERED: HYDR25TA PO (13:05)
[2016-12-03] MEDS ORDERED: ACYC200CA PO (13:05)
[2016-12-03] MEDS ORDERED: AMLO5TAB2 PO (13:05)
[2016-12-03 14:00] VITALS: BP 155/68
--- NOTE | 2016-12-03 14:11 | DS.PDOC ---
Discharge Summary General Date of Admission Nov 28, 2016 at 15:07 Date of Discharge 12/03/2016 Discharge Summary DISCHARGE SUMMARY DATE OF ADMISSION: 11/28/2016 DATE OF DISCHARGE: 12/03/2016 PRIMARY CARE PHYSICIAN: Dr. Rj Vazquez DISCHARGE DIAGNOS(E)S: Hypercalcemia Acute kidney injury, likely secondary to myeloma kidney Anemia HPI & HOSPITAL COURSE: 60-year-old male with hypertension, nephrolithiasis, recent diagnosis of likely multiple myeloma who presented with nausea, vomiting, and constipation.. He is admitted with hypercalcemia and acute kidney injury. 1. Hypercalcemia: Secondary to multiple myeloma and lytic bone lesions. This is now resolved with IV fluids and calcitonin. Continue calcitonin at the discretion of Dr. López - it was stopped yesterday. Avoid diuretics. 2. Acute kidney injury: Baseline creatinine is unknown, however, creatinine upon admission was 3.45. Dr. López is following and we greatly appreciate his input. 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 The patient has finally begun to have some improvement and Cr is now 2.48. Currently holding KEVIN inhibitor. Per our discussion this morning, Dr. López has cleared him for discharge and outpatient followup. 3. Concern for multiple myeloma with metastases: Dr. Campbell has seen the patient in consultation here in the hospital, and she completed a repeat bone marrow biopsy yesterday and initiated chemotherapy. She is arranging continued dosing and also, per our discussion this morning, has cleared the patient for discharge today. Started on prophylactic acyclovir by Dr. Campbell. 4. Hypertension: Current control is suboptimal, but nephrology just added hydralazine yesterday afternoon. Continue the Norvasc and hydralazine which were started here. Currently holding home KEVIN inhibitor. 5. Anemia: The patient's hemoglobin upon admission was 13.3, and it trended down to 10.3. We will defer management of this to Dr. López and Dr. Campbell. Continue to monitor, no source of bleeding at this time. DVT prophylaxis: Heparin PHYSICAL EXAMINATION ON DISCHARGE: VITAL SIGNS: Vital Signs Date Time Temp Pulse Resp B/P (MAP) Pulse Ox O2 Delivery O2 Flow Rate FiO2 12/03/16 09:15 73 161/92 12/03/16 06:00 98.0 14 97 Room Air General: Awake, alert, no acute distress HEENT: Normocephalic, atraumatic, extraocular movements intact CV: Regular rate and rhythm Lungs: Clear to auscultation bilaterally Abd: Soft, nontender, nondistended Extremities: No edema Neuro: Alert and oriented 3, normal speech Psych: normal mood and affect DISPOSITION: Home DISCHARGE INSTRUCTIONS: Follow-up with PCP Dr. Rj Vazquez within 1 week. Follow-up with Dr. López within 1 week. Follow-up with Dr. Campbell in 1 week. If symptoms return, or if you experience worsening of your symptoms, please call your doctor or return to the emergency department. ITEMS THAT NEED OUTPATIENT FOLLOWUP: Continued management of chemotherapy by Dr. Campbell Patient was seen and examined by me on the day of discharge, and I spent a total time of greater than 30 minutes on this discharge. Vital Signs/I&Os Vital Signs Date Time Temp Pulse Resp B/P (MAP) Pulse Ox O2 Delivery O2 Flow Rate FiO2 12/03/16 09:15 73 161/92 12/03/16 06:00 98.0 14 97 Room Air I&O- Last 24 Hours up to 6 AM 12/03/16 06:00 Intake Total 2160 ml Output Total 4000 ml Balance -1840 ml Laboratory Data Labs 24H Laboratory Tests 2 12/03/16 06:32: Anion Gap 13, Glomerular Filtration Rate 28.5L, Blood Urea Nitrogen 39H, Creatinine 2.48H, Sodium Level 137, Potassium Level 4.2, Chloride Level 106, Carbon Dioxide Level 18L, Calcium Level 9.1, Magnesium Level 1.9 CBC/BMP Laboratory Tests 12/03/16 06:32 Red Blood Count 3.45 L, Mean Corpuscular Volume 91.6, Mean Corpuscular Hemoglobin 32.0, Mean Corpuscular Hemoglobin Concent 35.0, Red Cell Distribution Width 14.3, Calcium Level 9.1 Discharge Medications Scheduled Acyclovir (Zovirax) 200 Mg Cap, 400 MG PO BID Amlodipine Besylate (Amlodipine Besylate) 5 Mg Tab, 5 MG PO BID Aspirin (Aspir-Low) 81 Mg Tab, 81 MG PO DAILY, (Reported) Hydralazine HCl (Hydralazine HCl) 25 Mg Tab, 25 MG PO BID Scheduled PRN Tramadol HCl (Tramadol HCl) 50 Mg Tab, 50 MG PO Q6H PRN for PAIN, (Reported) Allergies Coded Allergies: No Known Drug Allergy (Verified Allergy, Unknown, 11/28/16) HALLE KWON Dec 03, 2016 14:11
--- NOTE | 2016-12-03 23:06 | IPN ---
DATE: 12/03/2016 Mr. Troncoso is seen this morning on his bedside. He is feeling well and denies any complaints. He received his first dose of dexamethasone, Velcade and Revlimid yesterday. He denies any nausea, vomiting, dyspnea, chest pain, fever or chills. PHYSICAL EXAMINATION: Temperature 98 degrees Fahrenheit, heart rate 72 per minute and respiratory rate 14 per minute. Blood pressure 160/92 mmHg and oxygen saturation 97% on room air. His head is atraumatic. Neck is supple and without jugular venous distention (JVD) or thyroid enlargement. Ears, nose and throat are unremarkable. Heart: Sounds regular and lungs clear to auscultation. Abdomen: Soft and nontender and bowel sounds are normal. Extremities have no cyanosis or clubbing. Neurologically he is awake, alert and oriented times three. Today's his labs show WBC count 8.1, hemoglobin 11.0 and hematocrit 31.6. Sodium 137 and potassium 4.2. BUN is 39 and creatinine 2.48. Calcium level is 9.1 and magnesium 1.9. PROBLEMS: 1. Acute renal failure. Kidney function continues to improve nicely. His electrolytes are all within normal range. At this point, we will recheck his renal profile next week. 2. Hypercalcemia. Calcium level remains normal and rather on a declining course. His calcitonin was stopped yesterday. The patient should continue with regular diet. Calcium level will be checked again next week. 3. Multiple myeloma. The patient has already received his first dose of chemotherapy. He will follow up with Dr. Campbell as an outpatient next week. 4. Anemia. His anemia is stable and does not need any further intervention. He did receive one dose of Aranesp. 5. Hypertension. Blood pressure is still slightly higher than the goal. Medications were adjusted yesterday with addition of hydralazine, which should be continued. At this point, I would recommend to continue holding his KEVIN inhibitor. Once his kidney function on his back to normal, then we can resume KEVIN inhibitor if indicated. DISPOSITION: From renal standpoint, the patient can be discharged to home today and follow up in my office next week.
== END 2016-12-03 15:35 | disposition home or self-care (01) | DRG 841 ==
LOC: M ED 11:26 → M RR INP 15:07 → M PCU 16:14 → M MSPAV 11-30 21:06 → M MS5PR 12-01 19:14
PROVIDERS: ADMIT Internal Medicine; ATTEND Hospitalist
PROC: 07DR3ZX Extraction of Iliac Bone Marrow, Percutaneous Approach, Diagnostic (ICD-10-PCS; principal; 2016-12-02)
DX: C90.00 Multiple myeloma not having achieved remission (principal); N17.9 Acute kidney failure, unspecified; E83.52 Hypercalcemia; D64.9 Anemia, unspecified; I10 Essential (primary) hypertension; Z79.899 Other long term (current) drug therapy; Z79.82 Long term (current) use of aspirin; K59.00 Constipation, unspecified; E86.0 Dehydration; E87.6 Hypokalemia

== ENCOUNTER → 2016-12-30 | Outpatient (REF) | payer OTHER ==
[2016-12-30 16:14] LABS: FERRITIN 527 NG/ML (26-388); IMMUNOGLOBULIN G 1820 MG/DL (681-1648); PERCENT SATURATION 29.2 % (19.7-50.0); TOTAL IRON BINDING CAPACITY 291 UG/DL (250-450); TOTAL PROTEIN 7.9 GM/DL (6.4-8.2)
[2016-12-30 16:28] LABS: IMMUNOGLOBULIN M 9.06 MG/DL (40-230)
[2016-12-31 10:28] LABS: ALBUMIN 3.93 GM/DL (3.29-5.55); ALBUMIN % 49.8 % (55.8-66.1)
[2016-12-31 10:29] LABS: GAMMA GLOBULIN % 21.5 % (11.1-18.8)
[2017-01-01 00:07] LABS: BETA 2 MICROGLOBULIN 4.1 mg/L (0.6-2.4); FREE KAPPA LIGHT CHAINS SERUM 9.9 mg/L (3.3-19.4); FREE LAMBDA LIGHT CHAINS SERUM 2113.3 mg/L (5.7-26.3)
== END ==
LOC: M LAB REF 09:57
PROVIDERS: ATTEND Internal Medicine Medical Oncology
DX: C90.00 Multiple myeloma not having achieved remission (principal)

== ENCOUNTER → 2017-01-20 | Outpatient (REF) | payer OTHER ==
[2017-01-20 16:16] LABS: IMMUNOGLOBULIN G 1420 MG/DL (681-1648)
[2017-01-20 17:59] LABS: IMMUNOGLOBULIN A 14.3 MG/DL (70-400); IMMUNOGLOBULIN M 9.67 MG/DL (40-230)
[2017-01-21 13:42] LABS: ALBUMIN 3.84 GM/DL (3.29-5.55); ALBUMIN % 54.8 % (55.8-66.1); GAMMA GLOBULIN % 18.1 % (11.1-18.8)
[2017-01-22 00:55] LABS: FREE KAPPA LIGHT CHAINS SERUM 10.2 mg/L (3.3-19.4); FREE LAMBDA LIGHT CHAINS SERUM 1090.1 mg/L (5.7-26.3); KAPPA/LAMBDA RATIO SERUM 0.01 (0.26-1.65)
== END ==
LOC: M LAB REF 10:07
PROVIDERS: ATTEND Internal Medicine Medical Oncology
DX: C90.00 Multiple myeloma not having achieved remission (principal)

== ENCOUNTER → 2017-02-01 | Outpatient (CLI) | payer OTHER ==
[~2017-02-01] MED LIST changes: +GASTROGRAFIN SOLUTION 30ML (Q9963) As Ordered ONE; +ISOVUE-370 76% 100ML VIAL (Q9967) As Ordered ONE
--- NOTE | 2017-02-01 11:16 | REP ---
CT NECK WITH CONTRAST: HISTORY: Lymphadenopathy. CONTRAST: Isovue 370, 75 mL. Calcification is present in the right tonsil. This is secondary to previous inflammatory disease. The naso-, eliel- and hypopharynx, larynx and subglottic trachea are otherwise normal in appearance. The salivary and thyroid glands are normal in size and density. Small lymph nodes less than 1 cm in size are present in the internal jugular chains, posterior triangles, submandibular and submental areas. Atherosclerotic calcification is present at the left carotid bifurcation. Degenerative change is present in the cervical spine. The lung apices are clear. Mucosal thickening is present in the right maxillary sinus. IMPRESSION: There is no neck mass or adenopathy. Signed by Isaiah Elizabeth MD 02/01/2017 11:28 A
--- NOTE | 2017-02-01 11:38 | REP ---
A CT of the abdomen without and with IV contrast and with bowel contrast for follow up of splenomegaly identified on 11/28/2016. The pelvis is not included. And 11/28/2016. The spleen measured 15 cm AP by 13 cm craniocaudad. On the study today the spleen measures 13 cm AP by 12 cm craniocaudad. The splenic parenchyma is homogeneous on both phases of the study. There are no focal splenic masses. The liver appears normal size and is homogeneous and otherwise unremarkable. The gallbladder and pancreas are unremarkable. There is minor atelectasis/scarring at the inferior tip of the lingula. The visualized lung cruz otherwise unremarkable. There is a small hiatal hernia. This was not present on the comparison study. The adrenals and kidneys are unremarkable except for a 1 cm left adrenal cortical cyst. The abdominal aorta is unremarkable. There are a few normal-sized periaortic nodes. No periaortic lymph node enlargement. This is unchanged. There is no mesenteric lymph node enlargement. The bowel is unremarkable. A small fat-containing umbilical hernia is identified, unchanged. Impression: The spleen is normal size and has decreased in size from the prior study. Extensive lytic expansile skeletal lesions are identified throughout all skeletal structures. This entirely replaces the trabecular pattern of the L5 vertebral body and there is is grade II compression deformity of the L2 superior endplate. Small left renal cortical cyst is incidentally identified. There are normal size periaortic nodes. No mesenteric adenopathy. Small hiatal hernia. There are innumerable expansile lytic lesions throughout the lumbar spine and iliac wings, similar to the 11/28/2016. The trabecular pattern of the L5 vertebral body is entirely replaced. There is grade II compression deformity of the L to superior endplate. These findings are unchanged from 11/28/2016. Signed by Rodger Langford MD 02/01/2017 11:30 A
== END ==
LOC: M RAD 09:10
PROVIDERS: ATTEND Internal Medicine Medical Oncology
DX: R16.1 Splenomegaly, not elsewhere classified (principal); C90.00 Multiple myeloma not having achieved remission; R59.0 Localized enlarged lymph nodes

== ENCOUNTER → 2017-02-24 | Outpatient (REF) | payer OTHER ==
[~2017-02-24] MED LIST changes: -GASTROGRAFIN SOLUTION 30ML (Q9963) As Ordered ONE; -ISOVUE-370 76% 100ML VIAL (Q9967) As Ordered ONE
[2017-02-24 14:43] LABS: IMMUNOGLOBULIN A 29.8 MG/DL (70-400); IMMUNOGLOBULIN G 1060 MG/DL (681-1648); TOTAL PROTEIN 6.2 GM/DL (6.4-8.2)
[2017-02-24 15:34] LABS: IMMUNOGLOBULIN M 15.5 MG/DL (40-230)
[2017-02-25 12:15] LABS: ALBUMIN 3.48 GM/DL (3.29-5.55); ALBUMIN % 56.1 % (55.8-66.1); GAMMA GLOBULIN % 14.3 % (11.1-18.8)
[2017-02-26 00:07] LABS: BETA 2 MICROGLOBULIN 3.1 mg/L (0.6-2.4); FREE KAPPA LIGHT CHAINS SERUM 16.6 mg/L (3.3-19.4); FREE LAMBDA LIGHT CHAINS SERUM 312.4 mg/L (5.7-26.3); KAPPA/LAMBDA RATIO SERUM 0.05 (0.26-1.65)
== END ==
LOC: M LAB REF 13:00
PROVIDERS: ATTEND Internal Medicine Medical Oncology
DX: C90.00 Multiple myeloma not having achieved remission (principal)

== ENCOUNTER → 2017-03-11 | Outpatient (CLI) | payer OTHER ==
--- NOTE | 2017-03-15 09:17 | RADONC ---
RADIATION ONCOLOGY CONSULTATION NOTE DATE: 03/11/2017 CHART: [id number]. DIAGNOSIS: Multiple myeloma. ECOG PERFORMANCE STATUS: 1. CONSULTATION NOTE: Mr. Troncoso is a very pleasant, 61-year-old white male with the diagnosis of multiple myeloma who is presenting to us today complaining of right hip and low back pain. He is presenting for discussion of palliative radiation therapy. HISTORY OF PRESENT ILLNESS: The patient was in his usual state of health until early summer toward late spring when he began developing increasing low back pain. Multiple imaging studies were undertaken and revealed lesions consistent with what was thought to be skeletal metastatic disease in the ribs, low back and femurs. A CT scan was done on 11/25/2016 and showed increased uptake in the C1 vertebral body. The patient developed renal failure and on 11/23/2016 underwent a bone marrow biopsy, which revealed plasma cell dyscrasia. A subsequent left hip biopsy confirmed plasma cell myeloma. The patient was diagnosed with an IgG lambda multiple myeloma with elevated M protein and free lambda light chain. He was seen by Dr. Campbell and began treatment with bortezomib/lenalidomide/dexamethasone chemotherapy in October 2016. The patient has generally done well, but is presenting today complaining of back pain and right hip pain. The patient is being seen by a neurosurgeon for his back pain and is presenting to us for discussion of palliative radiation therapy to his right hip pain. PAST MEDICAL HISTORY: The patient's past medical history is positive for hypertension and arthritis. He has myeloma, induced kidney issues. The patient had a vasectomy in the past. ALLERGIES: The patient has NO KNOWN DRUG ALLERGIES. SOCIAL HISTORY: The patient does not smoke cigarettes nor abuse alcohol. FAMILY HISTORY: The patient family history is positive for a paternal grandfather with leukemia. REVIEW OF SYSTEMS: The patient's review of systems is positive for physical limitations secondary to pain. He has right hip and right knee pain. He also has a 20 pound weight loss and decreased energy. His review of systems is otherwise noncontributory. Denies nausea, vomiting, fevers, chills, night sweats, diplopia, headaches, anxiety or depression, anorexia, weight loss, visual disturbances, chest pain, urinary or bowel difficulties, bone pain, or neurological problems. PHYSICAL EXAMINATION: The patient is a well-developed, well-nourished male in no acute distress. HEENT exam is normocephalic, atraumatic. Extraocular movements are intact. There is no palpable cervical, supraclavicular, infraclavicular, axillary, or inguinal lymphadenopathy present. Lungs are clear to auscultation and percussion. Heart has a regular rate and rhythm. Abdomen is benign with no hepatosplenomegaly, masses, or tenderness. Rectal examination reveals a normal anal sphincter tone. Skeletal examination reveals no tenderness to pressure or percussion of the bony skeleton. Extremities reveal no clubbing, cyanosis, or edema. Neurologic exam is grossly intact, as is the remainder of the physical examination. ASSESSMENT: Clearly the patient is a candidate for external beam radiation therapy and I so informed him. I have discussed with the patient in detail the potential benefits as well as possible acute and chronic sequelae of external beam radiation therapy. We discussed logistics of treatment planning, simulation subsequent fractionated daily radiation treatments. I have scheduled the patient for the next available simulation slot and radiation treatments will begin subsequently. Thank you for allowing us to participate in the care of this very pleasant gentleman. If I could be of any further assistance or provide you with any information, please free to contact me anytime. As always, warm regards. cc: Tosha Campbell MD, FACP Rj Vazquez MD
== END ==
LOC: M ONCR 13:02
PROVIDERS: ATTEND Radiology Radiation Oncology
DX: C90.00 Multiple myeloma not having achieved remission (principal)

== ENCOUNTER 2017-03-15 10:33 | Outpatient (RCR) | payer OTHER ==
--- NOTE | 2017-03-16 06:45 | RADONC ---
RADIATION ONCOLOGY SIMULATION NOTE DATE: 03/15/2017 CHART NUMBER: [id number] Mr. Troncoso was taken to the CT scan for CT simulation of his hip field. CT was accomplished without difficulty or discomfort. Radiation treatment planning is underway and radiation treatments will begin subsequently. An immobilization device was created and will be used throughout the course of treatment. I was physically present throughout the course of CT simulation.
--- NOTE | 2017-03-30 08:51 | RADONC ---
RADIATION ONCOLOGY PROGRESS NOTE DATE: 03/29/2017 CHART NUMBER: [id number] Once again, we planned on starting Mr. Troncoso's radiation to his bilateral femurs. We have tried to contact Dr. Crfat's office once again to get final approval for that treatment. Apparently the patient's bone marrow is scheduled to be harvest sometime in the near future. Once again, we are not treating the upper pelvic bones, but rather the femurs and pubic rami region. I do not think we would be interfering however, I need to defer that decision to the experts in bone marrow transplant. In light of this, the patient now has not yet started and remains on hold. He has requested that we wait until bone marrow was taken. We will continue to follow him closely in the meantime.
== END 2017-04-01 ==
LOC: M ONCR 10:33
PROVIDERS: ATTEND Radiology Radiation Oncology
DX: C90.00 Multiple myeloma not having achieved remission (principal)

== ENCOUNTER → 2017-03-15 | Outpatient (CLI) | payer OTHER | LOC: M RAD 10:27 | PROVIDERS: ATTEND Radiology Radiation Oncology | DX: C90.00 Multiple myeloma not having achieved remission (principal) ==

== ENCOUNTER → 2017-03-24 | Outpatient (REF) | payer OTHER ==
[2017-03-24 14:46] LABS: IMMUNOGLOBULIN A 33.6 MG/DL (70-400); IMMUNOGLOBULIN G 783 MG/DL (681-1648); TOTAL PROTEIN 5.6 GM/DL (6.4-8.2)
[2017-03-24 15:44] LABS: IMMUNOGLOBULIN M 19.8 MG/DL (40-230)
[2017-03-27 00:07] LABS: FREE KAPPA LIGHT CHAINS SERUM 14.1 mg/L (3.3-19.4); FREE LAMBDA LIGHT CHAINS SERUM 173.5 mg/L (5.7-26.3); KAPPA/LAMBDA RATIO SERUM 0.08 (0.26-1.65)
[2017-03-30 10:58] LABS: ALBUMIN 3.25 GM/DL (3.29-5.55); ALBUMIN % 58.1 % (55.8-66.1); GAMMA GLOBULIN % 12.4 % (11.1-18.8)
== END ==
LOC: M LAB REF 13:13
PROVIDERS: ATTEND Internal Medicine Medical Oncology
DX: C90.00 Multiple myeloma not having achieved remission (principal)

== ENCOUNTER → 2017-03-31 | Outpatient (REF) | payer OTHER | LOC: M LAB REF 14:23 | PROVIDERS: ATTEND Internal Medicine Medical Oncology | DX: C90.00 Multiple myeloma not having achieved remission (principal) ==

== ENCOUNTER 2017-04-06 15:21 | Outpatient (RCR) | payer OTHER | END 2017-05-02 | LOC: M ONCR 15:21 | DX: C90.00 Multiple myeloma not having achieved remission (principal) ==

== ENCOUNTER → 2017-04-20 | Outpatient (REF) | payer OTHER ==
[2017-04-20 19:43] LABS: IMMUNOGLOBULIN A 52.2 MG/DL (70-400); IMMUNOGLOBULIN G 697 MG/DL (681-1648); TOTAL PROTEIN 6.2 GM/DL (6.4-8.2)
[2017-04-20 21:04] LABS: IMMUNOGLOBULIN M 25.6 MG/DL (40-230)
[2017-04-22 12:45] LABS: GAMMA GLOBULIN % 11.7 % (11.1-18.8)
[2017-04-23 00:07] LABS: FREE KAPPA LIGHT CHAINS SERUM 16.2 mg/L (3.3-19.4); FREE LAMBDA LIGHT CHAINS SERUM 169.6 mg/L (5.7-26.3); KAPPA/LAMBDA RATIO SERUM 0.1 (0.26-1.65)
== END ==
LOC: M LAB REF 17:36
PROVIDERS: ATTEND Internal Medicine Medical Oncology
DX: C90.00 Multiple myeloma not having achieved remission (principal)

== ENCOUNTER → 2017-05-18 | Outpatient (REF) | payer OTHER ==
[2017-05-18 19:24] LABS: IMMUNOGLOBULIN A 97.8 MG/DL (70-400); IMMUNOGLOBULIN G 1110 MG/DL (681-1648); IMMUNOGLOBULIN M 41.5 MG/DL (40-230); TOTAL PROTEIN 6.8 GM/DL (6.4-8.2)
[2017-05-21 00:07] LABS: FREE KAPPA LIGHT CHAINS SERUM 19.6 mg/L (3.3-19.4); FREE LAMBDA LIGHT CHAINS SERUM 458.9 mg/L (5.7-26.3); KAPPA/LAMBDA RATIO SERUM 0.04 (0.26-1.65)
[2017-05-21 11:09] LABS: ALBUMIN % 55.1 % (55.8-66.1); ALPHA-1-GLOBULIN % 5.3 % (2.9-4.9); ALPHA-2-GLOBULINS % 13.3 % (7.1-11.8); BETA-1-GLOBULINS % 5.8 % (4.7-7.2); BETA-2-GLOBULINS % 4.9 % (3.2-6.5); GAMMA GLOBULIN % 15.6 % (11.1-18.8)
[2017-05-21 11:10] LABS: ALBUMIN 3.75 GM/DL (3.29-5.55); ALPHA-1-GLOBULINS 0.36 GM/DL (0.17-0.41); BETA-1-GLOBULINS 0.39 GM/DL (0.28-0.60); BETA-2-GLOBULINS 0.33 GM/DL (0.19-0.55); GAMMA GLOBULINS 1.06 GM/DL (0.65-1.58)
== END ==
LOC: M LAB REF 17:35
DX: C90.00 Multiple myeloma not having achieved remission (principal)

== ENCOUNTER 2017-05-24 01:00 | Outpatient (RCR) | payer OTHER | END 2017-06-02 | LOC: M ONCR 05-25 10:44 | DX: C90.00 Multiple myeloma not having achieved remission (principal) | CPT/HCPCS: 77336 ==

== ENCOUNTER → 2017-06-08 | Outpatient (REF) | payer OTHER ==
[2017-06-08 14:55] LABS: IMMUNOGLOBULIN A 89.1 MG/DL (70-400); IMMUNOGLOBULIN G 1180 MG/DL (681-1648); IMMUNOGLOBULIN M 39.8 MG/DL (40-230); TOTAL PROTEIN 6.6 GM/DL (6.4-8.2)
[2017-06-10 00:07] LABS: FREE KAPPA LIGHT CHAINS SERUM 26.2 mg/L (3.3-19.4); FREE LAMBDA LIGHT CHAINS SERUM 241.8 mg/L (5.7-26.3); KAPPA/LAMBDA RATIO SERUM 0.11 (0.26-1.65)
[2017-06-10 13:33] LABS: ALBUMIN 3.41 GM/DL (3.29-5.55); ALBUMIN % 51.6 % (55.8-66.1); ALPHA-1-GLOBULIN % 6.3 % (2.9-4.9); ALPHA-2-GLOBULINS % 15.5 % (7.1-11.8); BETA-1-GLOBULINS % 5.1 % (4.7-7.2); BETA-2-GLOBULINS % 5.4 % (3.2-6.5); GAMMA GLOBULIN % 16.1 % (11.1-18.8)
[2017-06-10 13:34] LABS: ALPHA-1-GLOBULINS 0.42 GM/DL (0.17-0.41); ALPHA-2-GLOBULINS 1.02 GM/DL (0.42-0.99); BETA-1-GLOBULINS 0.34 GM/DL (0.28-0.60); BETA-2-GLOBULINS 0.36 GM/DL (0.19-0.55); GAMMA GLOBULINS 1.06 GM/DL (0.65-1.58)
== END ==
LOC: M LAB REF 13:47
DX: C90.00 Multiple myeloma not having achieved remission (principal)

== ENCOUNTER → 2017-06-30 | Outpatient (CLI) | payer OTHER | LOC: M ONCR 13:18 | DX: C90.00 Multiple myeloma not having achieved remission (principal) ==

== ENCOUNTER → 2017-07-05 | Outpatient (REF) | payer OTHER ==
[2017-07-05 15:28] LABS: IMMUNOGLOBULIN A 71.8 MG/DL (70-400); IMMUNOGLOBULIN G 927 MG/DL (681-1648); IMMUNOGLOBULIN M 27.8 MG/DL (40-230); TOTAL PROTEIN 6.3 GM/DL (6.4-8.2)
[2017-07-06 13:46] LABS: ALBUMIN 3.55 GM/DL (3.29-5.55); ALBUMIN % 56.4 % (55.8-66.1); ALPHA-1-GLOBULIN % 4.8 % (2.9-4.9); ALPHA-2-GLOBULINS 0.83 GM/DL (0.42-0.99); ALPHA-2-GLOBULINS % 13.2 % (7.1-11.8); BETA-1-GLOBULINS 0.41 GM/DL (0.28-0.60); BETA-1-GLOBULINS % 6.5 % (4.7-7.2); BETA-2-GLOBULINS % 4.7 % (3.2-6.5); GAMMA GLOBULIN % 14.4 % (11.1-18.8); GAMMA GLOBULINS 0.91 GM/DL (0.65-1.58)
[2017-07-07 00:07] LABS: FREE KAPPA LIGHT CHAINS SERUM 17.3 mg/L (3.3-19.4); FREE LAMBDA LIGHT CHAINS SERUM 124.6 mg/L (5.7-26.3); KAPPA/LAMBDA RATIO SERUM 0.14 (0.26-1.65)
== END ==
LOC: M LAB REF 13:16
DX: C90.00 Multiple myeloma not having achieved remission (principal)

== ENCOUNTER → 2017-09-13 | Outpatient (CLI) | payer OTHER | LOC: M RAD 09:58 | DX: C90.00 Multiple myeloma not having achieved remission (principal) | CPT/HCPCS: 93971 ==

== ENCOUNTER → 2017-10-11 | Outpatient (REF) | payer OTHER ==
[2017-10-11 19:03] LABS: IMMUNOGLOBULIN A 45.2 MG/DL (70-400); IMMUNOGLOBULIN G 553 MG/DL (681-1648); IMMUNOGLOBULIN M 36.4 MG/DL (40-230); TOTAL PROTEIN 5.6 GM/DL (6.4-8.2)
[2017-10-12 10:29] LABS: ALBUMIN 3.55 GM/DL (3.29-5.55); ALBUMIN % 63.4 % (55.8-66.1); ALPHA-1-GLOBULIN % 4.6 % (2.9-4.9); ALPHA-1-GLOBULINS 0.26 GM/DL (0.17-0.41); ALPHA-2-GLOBULINS 0.72 GM/DL (0.42-0.99); ALPHA-2-GLOBULINS % 12.8 % (7.1-11.8); BETA-1-GLOBULINS 0.31 GM/DL (0.28-0.60); BETA-1-GLOBULINS % 5.5 % (4.7-7.2); BETA-2-GLOBULINS 0.23 GM/DL (0.19-0.55); BETA-2-GLOBULINS % 4.1 % (3.2-6.5); GAMMA GLOBULIN % 9.6 % (11.1-18.8); GAMMA GLOBULINS 0.54 GM/DL (0.65-1.58)
[2017-10-14 00:07] LABS: FREE KAPPA LIGHT CHAINS SERUM 7.8 mg/L (3.3-19.4); FREE LAMBDA LIGHT CHAINS SERUM 14.7 mg/L (5.7-26.3); KAPPA/LAMBDA RATIO SERUM 0.53 (0.26-1.65)
== END ==
LOC: M LAB REF 17:35
DX: C90.00 Multiple myeloma not having achieved remission (principal)

== ENCOUNTER → 2017-11-02 | Outpatient (CLI) | payer OTHER | LOC: M RAD 10:07 | DX: M79.601 Pain in right arm (principal) | CPT/HCPCS: 93971 ==

== ENCOUNTER → 2017-11-10 | Outpatient (REF) | payer OTHER ==
[2017-11-10 14:40] LABS: IMMUNOGLOBULIN A 92.1 MG/DL (70-400); IMMUNOGLOBULIN G 935 MG/DL (681-1648); IMMUNOGLOBULIN M 54.2 MG/DL (40-230); TOTAL PROTEIN 6.2 GM/DL (6.4-8.2)
[2017-11-11 14:01] LABS: ALBUMIN 3.54 GM/DL (3.29-5.55); ALBUMIN % 57.1 % (55.8-66.1); ALPHA-1-GLOBULINS 0.31 GM/DL (0.17-0.41); ALPHA-2-GLOBULINS 0.86 GM/DL (0.42-0.99); ALPHA-2-GLOBULINS % 13.8 % (7.1-11.8); BETA-1-GLOBULINS 0.31 GM/DL (0.28-0.60); BETA-2-GLOBULINS % 4.9 % (3.2-6.5); GAMMA GLOBULIN % 14.2 % (11.1-18.8); GAMMA GLOBULINS 0.88 GM/DL (0.65-1.58)
[2017-11-12 00:12] LABS: FREE KAPPA LIGHT CHAINS SERUM 30.6 mg/L (3.3-19.4); FREE LAMBDA LIGHT CHAINS SERUM 32.5 mg/L (5.7-26.3); KAPPA/LAMBDA RATIO SERUM 0.94 (0.26-1.65)
== END ==
LOC: M LAB REF 13:44
DX: C90.00 Multiple myeloma not having achieved remission (principal); C79.51 Secondary malignant neoplasm of bone

== ENCOUNTER → 2018-01-19 | Outpatient (REF) | payer OTHER ==
[2018-01-19 15:18] LABS: IMMUNOGLOBULIN G 1240 MG/DL (681-1648); IMMUNOGLOBULIN M 22 MG/DL (40-230); TOTAL PROTEIN 7.2 GM/DL (6.4-8.2)
[2018-01-20 11:39] LABS: ALBUMIN % 48.8 % (55.8-66.1)
[2018-01-20 11:40] LABS: ALBUMIN 3.51 GM/DL (3.29-5.55); ALPHA-1-GLOBULIN % 6.3 % (2.9-4.9); ALPHA-1-GLOBULINS 0.45 GM/DL (0.17-0.41); ALPHA-2-GLOBULINS 1.12 GM/DL (0.42-0.99); ALPHA-2-GLOBULINS % 15.6 % (7.1-11.8); BETA-1-GLOBULINS % 5.5 % (4.7-7.2); BETA-2-GLOBULINS 0.42 GM/DL (0.19-0.55); BETA-2-GLOBULINS % 5.9 % (3.2-6.5); GAMMA GLOBULIN % 17.9 % (11.1-18.8); GAMMA GLOBULINS 1.29 GM/DL (0.65-1.58)
[2018-01-21 00:08] LABS: FREE KAPPA LIGHT CHAINS SERUM 30.1 mg/L (3.3-19.4); FREE LAMBDA LIGHT CHAINS SERUM 32.5 mg/L (5.7-26.3); KAPPA/LAMBDA RATIO SERUM 0.93 (0.26-1.65)
== END ==
LOC: M LAB REF 13:30
DX: C90.00 Multiple myeloma not having achieved remission (principal); C79.51 Secondary malignant neoplasm of bone; C90.01 Multiple myeloma in remission

== ENCOUNTER → 2019-08-30 | Outpatient (CLI) | payer OTHER ==
[~2019-08-30] MED LIST changes: +ACYC1CAP20 PO; -ACYC200CA PO; +ACYC400T PO; -AMLO5TAB2 PO; +AMLO5TAB6 PO; +ASPI81TA26 PO; +CALC1CAP31 PO; +LISI-542 PO; +REVL10CA2 PO
[2019-08-30 12:51] LABS: BASO % 1.5 % (0.0-1.0); EOS # 0.1 10^3/uL (0.0-0.5); EOS % 3.1 % (0.0-3.0); HEMATOCRIT 42.9 % (42.0-52.0); HEMOGLOBIN 14.4 g/dl (13.5-17.5); MEAN CORPUSCULAR HEMOGLOBIN 33.1 pg (27.0-33.0); MEAN CORPUSCULAR HGB CONC 33.6 g/dl (32.0-36.5); MEAN CORPUSCULAR VOLUME 98.6 fl (80.0-96.0); MONO # 0.3 10^3/uL (0.0-0.8); MONO % 11.9 % (0.0-5.0); NEUTROPHILS # 1.1 10^3/uL (1.5-8.5); NEUTROPHILS % 43.1 % (36.0-66.0); PLATELET COUNT, AUTOMATED 108 10^3/uL (150-450); RED BLOOD COUNT 4.35 10^6/uL (4.30-6.10); WHITE BLOOD COUNT 2.6 10^3/uL (4.0-10.0)
[2019-08-30 13:44] LABS: ALBUMIN 3.1 GM/DL (3.2-5.2); BILIRUBIN,TOTAL 0.5 MG/DL (0.2-1.0); CALCIUM LEVEL 8.8 MG/DL (8.8-10.2); CREATININE FOR GFR 1.36 MG/DL (0.70-1.30); GLOMERULAR FILTRATION RATE 56.5 (>49); IMMUNOGLOBULIN A 41.2 MG/DL (70-400); IMMUNOGLOBULIN M 9.2 MG/DL (40-230); POTASSIUM SERUM 3.9 MEQ/L (3.5-5.1); TOTAL PROTEIN 5.5 GM/DL (6.4-8.2)
[2019-09-01 08:06] LABS: BETA 2 MICROGLOBULIN 2.1 mg/L (0.6-2.4); FREE LAMBDA LIGHT CHAINS SERUM 9.1 mg/L (5.7-26.3); KAPPA/LAMBDA RATIO SERUM 1.1 (0.26-1.65)
== END ==
LOC: M LAB 12:11
PROVIDERS: ATTEND Internal Medicine Hematology
DX: C90.00 Multiple myeloma not having achieved remission (principal)

== ENCOUNTER → 2019-09-27 | Outpatient (CLI) | payer OTHER ==
[2019-09-27 10:57] LABS: BASO % 1.5 % (0.0-1.0); EOS # 0.1 10^3/uL (0.0-0.5); EOS % 1.9 % (0.0-3.0); HEMATOCRIT 42.3 % (42.0-52.0); HEMOGLOBIN 14.3 g/dl (13.5-17.5); LYMPH % 38.5 % (24.0-44.0); MEAN CORPUSCULAR HEMOGLOBIN 33.5 pg (27.0-33.0); MEAN CORPUSCULAR HGB CONC 33.8 g/dl (32.0-36.5); MEAN CORPUSCULAR VOLUME 99.1 fl (80.0-96.0); MONO # 0.3 10^3/uL (0.0-0.8); MONO % 12.2 % (0.0-5.0); NEUTROPHILS # 1.2 10^3/uL (1.5-8.5); NEUTROPHILS % 45.5 % (36.0-66.0); PLATELET COUNT, AUTOMATED 112 10^3/uL (150-450); RED BLOOD COUNT 4.27 10^6/uL (4.30-6.10); WHITE BLOOD COUNT 2.7 10^3/uL (4.0-10.0)
[2019-09-27 11:59] LABS: ALBUMIN 3.2 GM/DL (3.2-5.2); ALT/SGPT 55 U/L (12-78); BILIRUBIN,TOTAL 0.6 MG/DL (0.2-1.0); BLOOD UREA NITROGEN 19 MG/DL (7-18); CALCIUM LEVEL 8.9 MG/DL (8.8-10.2); CARBON DIOXIDE LEVEL 25 MEQ/L (21-32); CHLORIDE LEVEL 109 MEQ/L (98-107); CREATININE FOR GFR 1.28 MG/DL (0.70-1.30); GLOMERULAR FILTRATION RATE > 60.0 (>49); GLUCOSE, FASTING 88 MG/DL (70-100); IMMUNOGLOBULIN A 42.1 MG/DL (70-400); IMMUNOGLOBULIN G 423 MG/DL (681-1648); IMMUNOGLOBULIN M 5.6 MG/DL (40-230); POTASSIUM SERUM 3.6 MEQ/L (3.5-5.1); SODIUM LEVEL 142 MEQ/L (136-145); TOTAL PROTEIN 5.8 GM/DL (6.4-8.2)
[2019-09-28 16:08] LABS: BETA 2 MICROGLOBULIN 2.2 mg/L (0.6-2.4); FREE KAPPA LIGHT CHAINS SERUM 7.4 mg/L (3.3-19.4); FREE LAMBDA LIGHT CHAINS SERUM 8.4 mg/L (5.7-26.3); KAPPA/LAMBDA RATIO SERUM 0.88 (0.26-1.65)
== END ==
LOC: M LAB 09:59
PROVIDERS: ATTEND Internal Medicine Hematology
DX: C90.00 Multiple myeloma not having achieved remission (principal)

== ENCOUNTER → 2020-02-22 | Outpatient (CLI) | payer OTHER ==
[~2020-02-22] MED LIST changes: +AMLO1TAB24 PO; -AMLO5TAB6 PO; +CALC500C16 PO
--- NOTE | 2020-02-22 12:04 | REP ---
INDICATION: CKD STAGE 3, VEB PROSTATIC HYPERPLASIA,UTI SYMP COMPARISON: 11/28/2016 TECHNIQUE: Real time canales scale ultrasound examination using curved array transducer. FINDINGS: Kidneys are normal in reniform shape and demonstrate echogenic parenchyma with renovascular calcifications and increased central sinus fat. Right kidney measures 11.3 x 5.8 x 5.9 cm without hydronephrosis, nephrolithiasis, cystic or renal mass lesion. Left kidney measures 10.2 x 4.5 x 4.7 cm and includes 1.7 cm lower pole cyst without hydronephrosis, nephrolithiasis, or renal mass lesion. IMPRESSION: 1. Chronic medical renal disease. 2. 1.7 cm left renal hypodensity likely representing cyst. Consider pre and postcontrast CT of the abdomen for further investigation as this represents a relatively new finding compared to prior ultrasound. <Electronically signed by Lexx Man > 02/22/20 1200
--- NOTE | 2020-02-22 12:07 | REP ---
INDICATION: CKD STAGE 3, VEB PROSTATIC HYPERPLASIA,UTI SYMP COMPARISON: None TECHNIQUE: Real time B-mode ultrasound examination using curved array transducer. FINDINGS: Bladder is normal in appearance without wall thickening or mass lesion. Bilateral ureteral jets are identified. Prevoid bladder measures 11.4 x 6.7 x 5.2 cm (260 cc). Postvoid bladder measures 2.7 x 2.3 x 2.6 cm (10 cc). Postvoid residual: 4% IMPRESSION: 1. Normal bladder ultrasound. <Electronically signed by Lexx Man > 02/22/20 [id number]
== END ==
LOC: M RAD 10:57
PROVIDERS: ATTEND Internal Medicine Nephrology
DX: N18.30 Chronic kidney disease, stage 3 unspecified (principal); N40.1 Benign prostatic hyperplasia with lower urinary tract symptoms; N28.89 Other specified disorders of kidney and ureter

== ENCOUNTER → 2020-12-09 | Outpatient (REF) | payer MEDICARE, OTHER ==
[~2020-12-09] MED LIST changes: +ACYC1TAB PO; -ACYC400T PO; +ATOR40TA75 PO; +COVI100V IM; -LISI-538 PO; -LISI-542 PO; +LISI20TA33 PO; +LISI5TAB11 PO; +LOVE1INJ SC; +REVL2.5C PO; +REVL5CAP2 PO
[2020-12-09 10:04] LABS: CHOLESTEROL RISK RATIO 3.632 (<5)
== END ==
LOC: M LAB REF 08:59
PROVIDERS: ATTEND Family Medicine
DX: E78.2 Mixed hyperlipidemia (principal)

== ENCOUNTER → 2021-03-14 | Outpatient (REF) | payer MEDICARE, OTHER ==
[~2021-03-14] MED LIST changes: +LISI-898 PO; -LISI5TAB11 PO; -LOVE1INJ SC
== END ==
LOC: M LAB REF 17:15
PROVIDERS: ATTEND Internal Medicine Nephrology
DX: E83.42 Hypomagnesemia (principal)

== ENCOUNTER → 2021-03-25 | Outpatient (CLI) | payer MEDICARE, OTHER ==
--- NOTE | 2021-03-25 12:15 | REP ---
INDICATION: CYST OF KIDNEY COMPARISON: 02/22/2020 TECHNIQUE: Real time canales scale ultrasound examination using curved array transducer. FINDINGS: Kidneys are normal in reniform shape and demonstrate increased central sinus fat and cortical thinning consistent with chronic age-related renal disease. Right kidney measures 11.9 x 5.5 x 6.4 cm without hydronephrosis, nephrolithiasis, cystic or renal mass lesion. Left kidney measures 10.8 x 4.3 x 5.2 cm and includes 8 mm lower pole hypoechoic lesion likely representing small cyst. The bladder is unremarkable. IMPRESSION: Chronic medical renal disease. Suspected subcentimeter left lower pole renal cyst. <Electronically signed by Lexx Man > 03/25/21 [id number]
== END ==
LOC: M RAD 10:03
PROVIDERS: ATTEND Internal Medicine Nephrology
DX: N28.1 Cyst of kidney, acquired (principal)

== ENCOUNTER → 2021-04-22 | Outpatient (CLI) | payer MEDICARE, OTHER ==
--- NOTE | 2021-04-22 15:58 | REP ---
INDICATION: HX OF MYELOMA Multiple myeloma. COMPARISON: None. TECHNIQUE: Adult bone survey including AP views of the pelvis, bilateral humeri and femurs as well as AP/lateral views of the skull, and cervical through lumbosacral spine. FINDINGS: Innumerable lucent lesions are identified throughout the skull as well as involving the pelvic bones and to a lesser extent suggested within the spine and extremities. There appears to be a blastic lesion along the anterior margin of the left 6th rib. Sagittal views of the thoracic and lumbar spine raise the possibility of multiple compression deformities of indeterminate age which cannot be further evaluated due to technique. IMPRESSION: 1. Innumerable scattered lucencies consistent with multiple myeloma. 2. Suspected blastic lesion in the anterior margin left 6th rib. 3. Compression deformities suspected in multiple thoracic and lumbar vertebral bodies of indeterminate age. <Electronically signed by Lexx Man > 04/22/21 [id number]
== END ==
LOC: M RAD 14:35
PROVIDERS: ATTEND Internal Medicine Medical Oncology
DX: Z85.79 Personal history of other malignant neoplasms of lymphoid, hematopoietic and related tissues (principal)

== ENCOUNTER → 2021-04-30 | Outpatient (REF) | payer MEDICARE, OTHER | LOC: M LAB REF 14:02 | PROVIDERS: ATTEND Internal Medicine Hematology & Oncology | DX: C90.00 Multiple myeloma not having achieved remission (principal); Z94.84 Stem cells transplant status ==

== ENCOUNTER 2021-05-29 09:58 | Emergency (ER) | payer MEDICARE, OTHER ==
[~2021-05-29] VITALS: Ht 165.1 cm; Wt 93.1 kg
[~2021-05-29 09:58] MED LIST changes: -LISI-898 PO; +LISI5TAB11 PO
[2021-05-29 09:59] VITALS: BP 131/63
[2021-05-29] MEDS ORDERED: ENOXAPARIN 100MG/1ML SYRINGE (J1650 PER 10MG) SC ONE (11:05)
[2021-05-29] MEDS ORDERED: LOVE1INJ SC ×2 (11:10→12:14)
[2021-05-29 11:38] LABS: HEMATOCRIT 41.2 % (42.0-52.0); HEMOGLOBIN 13.4 g/dl (13.5-17.5); MEAN CORPUSCULAR HEMOGLOBIN 32.1 pg (27.0-33.0); MEAN CORPUSCULAR HGB CONC 32.5 g/dl (32.0-36.5); MEAN CORPUSCULAR VOLUME 98.8 fl (80.0-96.0); PLATELET COUNT, AUTOMATED 123 10^3/uL (150-450); RED BLOOD COUNT 4.17 10^6/uL (4.30-6.10); WHITE BLOOD COUNT 3.3 10^3/uL (4.0-10.0)
[2021-05-29 11:58] LABS: CREATININE FOR GFR 1.4 MG/DL (0.70-1.30); GLOMERULAR FILTRATION RATE 54.3 (>49)
[2021-05-30] MEDS ORDERED: REVL2.5C PO (08:31)
[2021-05-30] MEDS ORDERED: REVL5CAP2 PO (08:31)
[2021-05-30] MEDS ORDERED: LOVE1INJ SC (15:52)
== END 2021-05-29 12:28 | disposition home or self-care (01) ==
LOC: M ED 09:58
DX: I82.402 Acute embolism and thrombosis of unspecified deep veins of left lower extremity (principal); C90.00 Multiple myeloma not having achieved remission; I10 Essential (primary) hypertension; Z79.811 Long term (current) use of aromatase inhibitors; Z79.899 Other long term (current) drug therapy
CPT/HCPCS: 82565; 85027; 93971; 99282; J1650

== ENCOUNTER → 2021-06-23 | Outpatient (CLI) | payer MEDICARE, OTHER ==
[~2021-06-23] MED LIST changes: +ELIQ5TAB PO; +LOVE1INJ SC
== END ==
LOC: M RAD 09:21
PROVIDERS: ATTEND Specialist
DX: C90.00 Multiple myeloma not having achieved remission (principal); D48.0 Neoplasm of uncertain behavior of bone and articular cartilage
CPT/HCPCS: 78306; A9503

== ENCOUNTER → 2021-12-03 | Outpatient (CLI) | payer MEDICARE, OTHER ==
[~2021-12-03] MED LIST changes: +NOXI1TAB PO; +VITATAB74 PO
== END ==
LOC: M RAD 07:07
PROVIDERS: ATTEND Nurse Practitioner
DX: R74.01 Elevation of levels of liver transaminase levels (principal)

== ENCOUNTER → 2022-01-08 | Outpatient (REF) | payer MEDICARE, OTHER ==
[2022-01-08 10:52] LABS: TOTAL 25(OH) VITAMIN D 48.4 NG/ML (30.0-100.0)
[2022-01-09 06:08] LABS: MUMPS VIRUS IgG ANTIBODY <9.0 AU/mL (Immune >10.9); RUBEOLA IgG ANTIBODY 43.6 AU/mL (Immune >16.4)
== END ==
LOC: M LAB REF 09:09
PROVIDERS: ATTEND Physician Assistant
DX: Z11.59 Encounter for screening for other viral diseases (principal); E55.9 Vitamin D deficiency, unspecified; Z79.899 Other long term (current) drug therapy

== ENCOUNTER → 2022-03-05 | Outpatient (CLI) | payer MEDICARE, OTHER ==
[2022-03-05 10:45] LABS: BASO % 1.6 % (0.0-1.0); EOS # 0.1 10^3/uL (0.0-0.5); EOS % 2.3 % (0.0-3.0); HEMATOCRIT 44.8 % (42.0-52.0); LYMPH # 0.9 10^3/uL (1.5-5.0); MEAN CORPUSCULAR HEMOGLOBIN 32.5 pg (27.0-33.0); MEAN CORPUSCULAR HGB CONC 33.5 g/dl (32.0-36.5); MEAN CORPUSCULAR VOLUME 97.2 fl (80.0-96.0); MONO # 0.4 10^3/uL (0.0-0.8); MONO % 14.8 % (2.0-8.0); NEUTROPHILS # 1.2 10^3/uL (1.5-8.5); NEUTROPHILS % 46.3 % (36.0-66.0); PLATELET COUNT, AUTOMATED 113 10^3/uL (150-450); RED BLOOD COUNT 4.61 10^6/uL (4.30-6.10); WHITE BLOOD COUNT 2.6 10^3/uL (4.0-10.0)
[2022-03-05 12:17] LABS: ALBUMIN 3.1 GM/DL (3.2-5.2); ALT/SGPT 32 U/L (12-78); BILIRUBIN,TOTAL 0.5 MG/DL (0.2-1.0); BLOOD UREA NITROGEN 12 MG/DL (7-18); CALCIUM LEVEL 9.2 MG/DL (8.8-10.2); CARBON DIOXIDE LEVEL 26 MEQ/L (21-32); CHLORIDE LEVEL 108 MEQ/L (98-107); GLOMERULAR FILTRATION RATE 54.1 (>49); GLUCOSE, FASTING 93 MG/DL (70-100); IMMUNOGLOBULIN A 8.9 MG/DL (70-400); IMMUNOGLOBULIN G 239 MG/DL (681-1648); POTASSIUM SERUM 3.8 MEQ/L (3.5-5.1); SODIUM LEVEL 138 MEQ/L (136-145); TOTAL PROTEIN 5.4 GM/DL (6.4-8.2)
[2022-03-05 12:26] LABS: IMMUNOGLOBULIN M < 5.3 MG/DL (40-230)
[2022-03-06 13:42] LABS: ALBUMIN 3.62 GM/DL (3.29-5.55); ALPHA-1-GLOBULIN % 5.2 % (2.9-4.9); ALPHA-1-GLOBULINS 0.28 GM/DL (0.17-0.41); ALPHA-2-GLOBULINS 0.72 GM/DL (0.42-0.99); ALPHA-2-GLOBULINS % 13.4 % (7.1-11.8); BETA-1-GLOBULINS 0.33 GM/DL (0.28-0.60); BETA-1-GLOBULINS % 6.1 % (4.7-7.2); BETA-2-GLOBULINS 0.21 GM/DL (0.19-0.55); BETA-2-GLOBULINS % 3.8 % (3.2-6.5); GAMMA GLOBULIN % 4.5 % (11.1-18.8); GAMMA GLOBULINS 0.24 GM/DL (0.65-1.58)
[2022-03-06 18:07] LABS: FREE KAPPA LIGHT CHAINS SERUM 4.2 mg/L (3.3-19.4); FREE LAMBDA LIGHT CHAINS SERUM 5.9 mg/L (5.7-26.3); KAPPA/LAMBDA RATIO SERUM 0.71 (0.26-1.65)
== END ==
LOC: M LAB 10:13
PROVIDERS: ATTEND Nurse Practitioner
DX: C90.00 Multiple myeloma not having achieved remission (principal)

== ENCOUNTER → 2022-04-03 | Outpatient (CLI) | payer MEDICARE, OTHER ==
[2022-04-03 11:51] LABS: BASO % 1.6 % (0.0-1.0); EOS # 0.1 10^3/uL (0.0-0.5); EOS % 3.1 % (0.0-3.0); HEMATOCRIT 45.8 % (42.0-52.0); HEMOGLOBIN 15.3 g/dl (13.5-17.5); LYMPH # 0.9 10^3/uL (1.5-5.0); LYMPH % 45.5 % (24.0-44.0); MEAN CORPUSCULAR HEMOGLOBIN 32.7 pg (27.0-33.0); MEAN CORPUSCULAR HGB CONC 33.4 g/dl (32.0-36.5); MEAN CORPUSCULAR VOLUME 97.9 fl (80.0-96.0); MONO # 0.3 10^3/uL (0.0-0.8); MONO % 16.2 % (2.0-8.0); NEUTROPHILS % 33.6 % (36.0-66.0); RED BLOOD COUNT 4.68 10^6/uL (4.30-6.10); WHITE BLOOD COUNT 1.9 10^3/uL (4.0-10.0)
[2022-04-03 12:48] LABS: NEUTROPHILS # 0.6 10^3/uL (1.5-8.5); PLATELET COUNT, AUTOMATED 99 10^3/uL (150-450)
[2022-04-03 13:07] LABS: ALBUMIN 3.3 G/DL (3.2-5.2); ALKALINE PHOSPHATASE 63 U/L (46-116); ALT/SGPT 38 U/L (7.0-40); AST/SGOT 20 U/L (<34); BILIRUBIN,TOTAL 0.8 MG/DL (0.3-1.2); BLOOD UREA NITROGEN 21 MG/DL (9-23); CALCIUM LEVEL 8.5 MG/DL (8.3-10.6); CARBON DIOXIDE LEVEL 27 MMOL/L (20-31); CHLORIDE LEVEL 104 MMOL/L (98-107); CREATININE FOR GFR 1.54 MG/DL (0.70-1.30); GLOMERULAR FILTRATION RATE 48.5 (>49); GLUCOSE, FASTING 92 MG/DL (74-106); POTASSIUM SERUM 3.6 MMOL/L (3.5-5.1); SODIUM LEVEL 139 MMOL/L (136-145); TOTAL PROTEIN 5.1 G/DL (5.7-8.2); TOTAL PROTEIN 5.1 GM/DL (6.4-8.2)
[2022-04-03 13:52] LABS: IMMUNOGLOBULIN G 233 MG/DL (650-1600)
[2022-04-03 14:20] LABS: IMMUNOGLOBULIN M 20.99999 MG/DL (50-300)
[2022-04-04 17:07] LABS: FREE KAPPA LIGHT CHAINS SERUM 3.8 mg/L (3.3-19.4); FREE LAMBDA LIGHT CHAINS SERUM 3.7 mg/L (5.7-26.3); KAPPA/LAMBDA RATIO SERUM 1.03 (0.26-1.65)
[2022-04-07 11:36] LABS: ALBUMIN 3.55 GM/DL (3.29-5.55); ALBUMIN % 69.7 % (55.8-66.1); ALPHA-1-GLOBULIN % 4.2 % (2.9-4.9); ALPHA-1-GLOBULINS 0.21 GM/DL (0.17-0.41); ALPHA-2-GLOBULINS % 11.7 % (7.1-11.8); BETA-1-GLOBULINS 0.32 GM/DL (0.28-0.60); BETA-1-GLOBULINS % 6.2 % (4.7-7.2); BETA-2-GLOBULINS 0.17 GM/DL (0.19-0.55); BETA-2-GLOBULINS % 3.4 % (3.2-6.5); GAMMA GLOBULIN % 4.8 % (11.1-18.8); GAMMA GLOBULINS 0.24 GM/DL (0.65-1.58)
== END ==
LOC: M LAB 09:56
PROVIDERS: ATTEND Nurse Practitioner
DX: C90.00 Multiple myeloma not having achieved remission (principal)

== ENCOUNTER → 2022-05-26 | Outpatient (CLI) | payer MEDICARE, OTHER ==
[~2022-05-26] MED LIST changes: +ELIQ2.5T PO; +LIDOCAINE 1% MDV 20ML VIAL As Ordered ONE; +LISI20TA33
[2022-05-26 13:05] VITALS: BP 161/85
[2022-05-26 13:23] LABS: BASO % 0.4 % (0.0-1.0); EOS % 0.4 % (0.0-3.0); HEMOGLOBIN 14.7 g/dl (13.5-17.5); LYMPH % 19.6 % (24.0-44.0); MEAN CORPUSCULAR HEMOGLOBIN 33.9 pg (27.0-33.0); MEAN CORPUSCULAR HGB CONC 33.4 g/dl (32.0-36.5); MEAN CORPUSCULAR VOLUME 101.6 fl (80.0-96.0); MONO # 0.7 10^3/uL (0.0-0.8); MONO % 14.5 % (2.0-8.0); NEUTROPHILS # 3.2 10^3/uL (1.5-8.5); NEUTROPHILS % 64.9 % (36.0-66.0); PLATELET COUNT, AUTOMATED 189 10^3/uL (150-450); RED BLOOD COUNT 4.33 10^6/uL (4.30-6.10); WHITE BLOOD COUNT 4.9 10^3/uL (4.0-10.0)
== END ==
LOC: M IRPRO 11:54
PROVIDERS: ATTEND Nurse Practitioner
DX: C90.00 Multiple myeloma not having achieved remission (principal)

== ENCOUNTER → 2022-06-24 | Outpatient (REF) | payer MEDICARE, OTHER ==
[~2022-06-24] MED LIST changes: -LIDOCAINE 1% MDV 20ML VIAL As Ordered ONE
[2022-06-24 11:21] LABS: CHOLESTEROL RISK RATIO 4.32 (<5)
[2022-06-24 18:27] LABS: LDL CHOLESTEROL 127.2 MG/DL (<100)
== END ==
LOC: M LAB REF 10:05
PROVIDERS: ATTEND Physician Assistant
DX: E78.2 Mixed hyperlipidemia (principal); Z12.5 Encounter for screening for malignant neoplasm of prostate
CPT/HCPCS: 80061; G0103

== ENCOUNTER → 2022-12-30 | Outpatient (REF) | payer MEDICARE, OTHER ==
[2022-12-30 11:59] LABS: HEMOGLOBIN A1c 4.8 % (4.0-6.0)
[2022-12-30 12:15] LABS: CHOLESTEROL RISK RATIO 3.73 (<5); HDL CHOLESTEROL 51.7 MG/DL (>40); LDL CHOLESTEROL 109.7 MG/DL (<100); NON-HDL-C 141.3 MG/DL
[2022-12-30 12:16] LABS: TOTAL 25(OH) VITAMIN D 31.5 NG/ML (20.0-100.0)
[2022-12-30 12:17] LABS: THYROID STIMULATING HORMONE 1.318 uIU/ML (0.55-4.78)
== END ==
LOC: M SFHCPLAZ 11:07
PROVIDERS: ATTEND Physician Assistant
DX: E78.2 Mixed hyperlipidemia (principal); E55.9 Vitamin D deficiency, unspecified; Z13.29 Encounter for screening for other suspected endocrine disorder; Z13.1 Encounter for screening for diabetes mellitus

== ENCOUNTER → 2023-07-30 | Outpatient (REF) | payer MEDICARE, OTHER ==
[~2023-07-30] MED LIST changes: -HYDR25TA PO; +HYDR25TA88 PO
== END ==
LOC: M SFHCPLAZ 08:32
PROVIDERS: ATTEND Physician Assistant
DX: Z12.5 Encounter for screening for malignant neoplasm of prostate (principal)

== ENCOUNTER 2023-10-20 15:17 | Emergency (ER) | payer MEDICARE, OTHER ==
[~2023-10-20] VITALS: Ht 162.6 cm; Wt 91.1 kg
[2023-10-20] MEDS ORDERED: XALA0.007 OP (15:43)
[2023-10-20 17:10] LABS: HEMATOCRIT 38.9 % (42.0-52.0); HEMOGLOBIN 13.9 g/dl (13.5-17.5); MEAN CORPUSCULAR HEMOGLOBIN 33.1 pg (27.0-33.0); MEAN CORPUSCULAR HGB CONC 35.7 g/dl (32.0-36.5); MEAN CORPUSCULAR VOLUME 92.6 fl (80.0-96.0); WHITE BLOOD COUNT 3.6 10^3/uL (4.0-10.0)
[2023-10-20 17:18] LABS: INR 1.01
[2023-10-20 17:29] LABS: PLATELET COUNT, AUTOMATED 89 10^3/uL (150-450)
[2023-10-20 17:34] LABS: ATYPICAL LYMPH 21 % (0-5); LYMPHOCYTES 37 % (16-44); MONOCYTES 6 % (0-5); NEUTROPHILS 36 % (28-66); PLATELET ESTIMATE DECREASED (NORMAL)
[2023-10-20 17:41] LABS: ALBUMIN 2.5 G/DL (3.2-5.2); BILIRUBIN,DIRECT 0.2 MG/DL (<0.4); BILIRUBIN,TOTAL 0.6 MG/DL (0.3-1.2); CALCIUM LEVEL 8.4 MG/DL (8.3-10.6); CREATININE FOR GFR 1.43 MG/DL (0.70-1.30); GLOMERULAR FILTRATION RATE 52.7 (>49); POTASSIUM SERUM 3.4 MMOL/L (3.5-5.1); TOTAL PROTEIN 5.2 G/DL (5.7-8.2)
[2023-10-20] MEDS ORDERED: ISOVUE-370 76% 100ML VIAL As Ordered ONE (19:04)
[2023-10-20] MEDS: ACETAMINOPHEN *IV* 1,000 MG in IV 1 EA IV ONE (19:15)
[2023-10-20] MEDS ORDERED: MIRA3350 PO (22:27)
[2023-10-20 22:44] VITALS: BP 131/71; TEMP 97.3; O2SAT 98
== END 2023-10-20 22:45 | disposition home or self-care (01) ==
LOC: M ED 15:17
DX: R10.9 Unspecified abdominal pain (principal); C90.00 Multiple myeloma not having achieved remission; K57.30 Diverticulosis of large intestine without perforation or abscess without bleeding; N28.1 Cyst of kidney, acquired; K21.9 Gastro-esophageal reflux disease without esophagitis; I10 Essential (primary) hypertension; K40.90 Unilateral inguinal hernia, without obstruction or gangrene, not specified as recurrent; Z87.442 Personal history of urinary calculi; Z94.81 Bone marrow transplant status; Z79.01 Long term (current) use of anticoagulants; Z79.811 Long term (current) use of aromatase inhibitors; Z79.899 Other long term (current) drug therapy
CPT/HCPCS: 74177; 80048; 80076; 82150; 83605; 83690; 85025; 85049; 85055; 85610; 87040; 93041; 96374; 99284; J0131; Q9967

== ENCOUNTER 2023-11-06 07:56 | Emergency (ER) | payer MEDICARE, OTHER ==
[~2023-11-06] VITALS: Ht 162.6 cm; Wt 83.2 kg
[~2023-11-06 07:56] MED LIST changes: +MIRA3350 PO; +POTA-298 PO; +XALA0.007 OP
[2023-11-06 08:43] LABS: HEMATOCRIT 36.9 % (42.0-52.0); HEMOGLOBIN 12.4 g/dl (13.5-17.5); MEAN CORPUSCULAR HEMOGLOBIN 32.5 pg (27.0-33.0); MEAN CORPUSCULAR HGB CONC 33.6 g/dl (32.0-36.5); MEAN CORPUSCULAR VOLUME 96.6 fl (80.0-96.0); RED BLOOD COUNT 3.82 10^6/uL (4.30-6.10); WHITE BLOOD COUNT 4.7 10^3/uL (4.0-10.0)
[2023-11-06 08:44] LABS: PLATELET COUNT, AUTOMATED 65 10^3/uL (150-450)
[2023-11-06 08:50] LABS: ALBUMIN 2.3 G/DL (3.2-5.2); BILIRUBIN,DIRECT 0.8 MG/DL (<0.4); BILIRUBIN,TOTAL 1.5 MG/DL (0.3-1.2); CALCIUM LEVEL 7.9 MG/DL (8.3-10.6); CREATININE FOR GFR 1.76 MG/DL (0.70-1.30); GLOMERULAR FILTRATION RATE 41.4 (>49); TOTAL PROTEIN 5.3 G/DL (5.7-8.2)
[2023-11-06] MEDS: NS 1,000 ML IV ONE (08:52)
[2023-11-06] MEDS: METOCLOPRAMIDE INJ 10MG/2ML VIAL IV ONE ×2 (08:53→12:51)
[2023-11-06 09:08] LABS: ANISOCYTOSIS 1+; ATYPICAL LYMPH 9 % (0-5); EOSINOPHILS 1 % (0-3); LYMPHOCYTES 42 % (16-44); MONOCYTES 11 % (0-5); NEUTROPHILS 37 % (28-66); PLATELET ESTIMATE DECREASED (NORMAL); POIKILOCYTOSIS 1+
[2023-11-06 09:16] LABS: INR 1.19; PROTHROMBIN TIME 14.7 SECONDS (12.5-14.5)
[2023-11-06] MEDS: LIDOCAINE VISCOUS 2% SOLN 15ML UDC PO ONE (13:20)
[2023-11-06] MEDS: MAALOX 30 ML SUSP *UDC PO ONE (13:20)
[2023-11-06 14:45] VITALS: BP 127/87; O2SAT 99
[2023-11-06] MEDS ORDERED: ONDA-282 PO (14:50)
[2023-11-06] MEDS ORDERED: REGL5TAB2 PO (14:50)
[2023-11-06] MEDS ORDERED: OMEP40CA4 PO (14:51)
[2023-11-06 14:59] VITALS: TEMP 97.5
== END 2023-11-06 15:00 | disposition home or self-care (01) ==
LOC: M ED 07:56
DX: R11.2 Nausea with vomiting, unspecified (principal); K30 Functional dyspepsia; K80.20 Calculus of gallbladder without cholecystitis without obstruction; K44.9 Diaphragmatic hernia without obstruction or gangrene; I49.1 Atrial premature depolarization; I45.81 Long QT syndrome; N18.9 Chronic kidney disease, unspecified; I10 Essential (primary) hypertension; M54.50 Low back pain, unspecified; Z79.01 Long term (current) use of anticoagulants; Z79.811 Long term (current) use of aromatase inhibitors; Z79.83 Long term (current) use of bisphosphonates; Z79.899 Other long term (current) drug therapy; Z87.442 Personal history of urinary calculi
CPT/HCPCS: 71045; 74176; 76705; 80048; 80076; 83605; 83690; 85025; 85049; 85055; 85610; 85730; 86850; 86900; 86901; 87040; 93005; 93041; 96361; 96374; 96376; 99285; J2765

== ENCOUNTER 2023-12-13 11:37 | Emergency (ER) | payer MEDICARE, OTHER ==
[2023-12-13] VITALS (7 sets, daily range): BP systolic 114–122; BP diastolic 74–87; TEMP 98–98.9; O2SAT 92–99
[~2023-12-13] VITALS: Ht 165.1 cm; Wt 84.0 kg
[~2023-12-13 11:37] MED LIST changes: +OMEP40CA4 PO; +ONDA-282 PO; +REGL5TAB2 PO
[2023-12-13 16:46] LABS: EOS % 0.5 % (0.0-3.0); LYMPH # 2.1 10^3/uL (1.5-5.0); MEAN CORPUSCULAR HEMOGLOBIN 32.2 pg (27.0-33.0); MEAN CORPUSCULAR HGB CONC 33.1 g/dl (32.0-36.5); MEAN CORPUSCULAR VOLUME 97.1 fl (80.0-96.0); MONO # 1.1 10^3/uL (0.0-0.8); MONO % 28.4 % (2.0-8.0); NEUTROPHILS % 14.5 % (36.0-66.0); RED BLOOD COUNT 1.71 10^6/uL (4.30-6.10); WHITE BLOOD COUNT 3.7 10^3/uL (4.0-10.0)
[2023-12-13 16:54] LABS: HEMATOCRIT 16.6 % (42.0-52.0); HEMOGLOBIN 5.5 g/dl (13.5-17.5)
[2023-12-13 16:55] LABS: NEUTROPHILS # 0.5 10^3/uL (1.5-8.5); PLATELET COUNT, AUTOMATED 54 10^3/uL (150-450)
[2023-12-13 17:07] LABS: LIPASE 31 U/L (12-53)
[2023-12-13 17:09] LABS: ALBUMIN 2.7 G/DL (3.2-5.2); ALKALINE PHOSPHATASE 201 U/L (46-116); ALT/SGPT 42 U/L (7.0-40); AST/SGOT 15 U/L (<34); BILIRUBIN,DIRECT 0.2 MG/DL (<0.4); BILIRUBIN,TOTAL 0.6 MG/DL (0.3-1.2); BLOOD UREA NITROGEN 33 MG/DL (9-23); CALCIUM LEVEL 8.6 MG/DL (8.3-10.6); CARBON DIOXIDE LEVEL 19 MMOL/L (20-31); CHLORIDE LEVEL 107 MMOL/L (98-107); CREATININE FOR GFR 1.51 MG/DL (0.70-1.30); GLOMERULAR FILTRATION RATE 49.5 (>49); GLUCOSE, FASTING 124 MG/DL (74-106); POTASSIUM SERUM 3.9 MMOL/L (3.5-5.1); SODIUM LEVEL 137 MMOL/L (136-145); TOTAL PROTEIN 5.7 G/DL (5.7-8.2)
[2023-12-13 17:23] LABS: INR 1.18; PARTIAL THROMBOPLASTIN TIME 29.3 SECONDS (24.8-34.2); PROTHROMBIN TIME 14.6 SECONDS (12.5-14.5)
[2023-12-13] MEDS ORDERED: ISOVUE-370 76% 100ML VIAL As Ordered ONE (17:26)
[2023-12-13 18:01] LABS: CPK CREATINE PHOSPHOKINASE 34 U/L (46-171)
[2023-12-13] MEDS: NS 500 ML IV ONE (18:08)
[2023-12-13 18:12] LABS: ABG BASE EXCESS -3.8 (-2.0-2.0); ABG HCO3 19.3 MMOL/L (22.0-26.0); ABG O2 SATURATION 98.4 % (95.0-99.0); ABG PARTIAL PRESSURE CO2 25.4 mmHg (35.0-45.0); ABG PARTIAL PRESSURE O2 125.5 mmHg (75.0-100.0); ABG STANDARD HCO3 21.2 MMOL/L. (22.0-26.0); ABG TOTAL CO2 20.1 MMOL/L (23.0-31.0); ABG pH (ARTERIAL) 7.499 UNITS (7.350-7.450)
[2023-12-13 18:17] LABS: CK-MB VALUE MASS < 1.0 NG/ML (<3.6); MB/CK RELATIVE INDEX 2.94 (< OR =4)
[2023-12-13] MEDS ORDERED: XALA0.007 OU (22:33)
[2023-12-13] MEDS ORDERED: VITA100093 PO (22:33)
[2023-12-13] MEDS ORDERED: OYST500T92 PO (22:33)
[2023-12-13] MEDS ORDERED: HOME MED LIST COMPLETE! XX SCH (22:40)
== END 2023-12-13 23:15 | disposition short-term general hospital (02) ==
LOC: M ED 11:37
DX: D61.818 Other pancytopenia (principal); C95.00 Acute leukemia of unspecified cell type not having achieved remission; K80.20 Calculus of gallbladder without cholecystitis without obstruction; I31.39 Other pericardial effusion (noninflammatory); D64.9 Anemia, unspecified; I48.91 Unspecified atrial fibrillation; J43.9 Emphysema, unspecified; K57.30 Diverticulosis of large intestine without perforation or abscess without bleeding; K42.9 Umbilical hernia without obstruction or gangrene; J98.11 Atelectasis; I51.7 Cardiomegaly; I77.810 Thoracic aortic ectasia; I45.81 Long QT syndrome; I10 Essential (primary) hypertension; N18.9 Chronic kidney disease, unspecified; K21.9 Gastro-esophageal reflux disease without esophagitis; Z86.718 Personal history of other venous thrombosis and embolism; Z94.6 Bone transplant status; Z79.01 Long term (current) use of anticoagulants; Z79.811 Long term (current) use of aromatase inhibitors; Z79.899 Other long term (current) drug therapy
CPT/HCPCS: 36415; 36600; 70450; 71045; 71275; 74177; 80048; 80076; 82550; 82553; 82803; 83690; 83880; 84484; 85025; 85049; 85055; 85610; 85730; 86850; 86900; 86901; 86920; 87486; 87581; 87633; 87798; 93005; 93041; 93306; 94760; 99285; P9016; Q9967